=== PATIENT | male | born 2000 | race Caucasian/White ===

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

== ENCOUNTER 2020-12-11 07:21 | Emergency (ER) | payer BC, OTHER ==
[2020-12-11 07:37] VITALS: BP 92/68; PULSE 93
[2020-12-11 07:38] VITALS: O2SAT 100
--- NOTE | 2020-12-11 07:40 | ERPHSYRPT ---
- History of Present Illness Time Seen by Provider: 12/11/20 07:35 Source: patient Physician History: Patient is a 20-year-old male presents to our ED via EMS for evaluation of a seizure. Per EMS patient has been experiencing dizziness and a headache for approximately 1 month. 3 days ago patient fell and hit his head. This morning patient had a seizure that was observed by his girlfriend. EMS reports patient was confused upon their arrival. Patient is now somewhat combative. He is stating "I just want to go". Patient denies pain. No chest pain or shortness of breath. No nausea vomiting or diaphoresis at this time. No fever. No neck pain. Cervical spine cleared clinically. Patient states otherwise healthy. He voices no other complaints or concerns at this time. Timing/Duration: today Severity: moderate Modifying Factors: Improves With: nothing Associated Symptoms: denies symptoms Allergies/Adverse Reactions: No Known Drug Allergies Allergy (Verified 12/11/20 07:37) Home Medications: No Reportable Medications [No Reported Medications] 10/02/17 [History] Hx Tetanus, Diphtheria Vaccination/Date Given: Yes Hx Influenza Vaccination/Date Given: No Hx Pneumococcal Vaccination/Date Given: No - Review of Systems Constitutional: No Symptoms, No Fever, No Chills Eyes: No Symptoms Ears, Nose, & Throat: No Symptoms Respiratory: No Symptoms, No Cough, No Dyspnea Cardiac: No Symptoms, No Chest Pain, No Edema, No Syncope Abdominal/Gastrointestinal: No Symptoms, No Abdominal Pain, No Nausea, No Vomiting, No Diarrhea Genitourinary Symptoms: No Symptoms, No Dysuria Musculoskeletal: No Symptoms, No Back Pain, No Neck Pain Skin: No Symptoms, No Rash Neurological: No Symptoms, No Dizziness, No Focal Weakness, No Sensory Changes Psychological: No Symptoms Endocrine: No Symptoms Hematologic/Lymphatic: No Symptoms Immunological/Allergic: No Symptoms All Other Systems: Reviewed and Negative - Past Medical History Pertinent Past Medical History: No - Past Surgical History Past Surgical History: Yes Other Surgical History: TONSILS - Social History Smoking Status: Current every day smoker How long have you smoked: 2 years Exposure to second hand smoke: Yes Alcohol Use: None Drug Use: none Patient Lives Alone: No Significant Family History: no pertinent family hx - Nursing Vital Signs Nursing Vital Signs: Initial Vital Signs Temperature 97.2 F 12/11/20 07:25 Pulse Rate 93 H 12/11/20 07:25 Respiratory Rate 16 12/11/20 07:25 Blood Pressure 92/68 12/11/20 07:25 O2 Sat by Pulse Oximetry 99 12/11/20 07:25 Pain Scale Pain Intensity 0 - Physical Exam General Appearance: no apparent distress, alert, other (Patient states he does not want to be in the ED.) Eye Exam: PERRL/EOMI, eyes nml inspection Ears, Nose, Throat Exam: normal ENT inspection, TMs normal, pharynx normal, moist mucous membranes Neck Exam: normal inspection, non-tender, supple, full range of motion Respiratory Exam: normal breath sounds, lungs clear, No respiratory distress Cardiovascular Exam: regular rate/rhythm, normal heart sounds, normal peripheral pulses Gastrointestinal/Abdomen Exam: soft, normal bowel sounds, No tenderness, No mass Back Exam: normal inspection, normal range of motion, No CVA tenderness, No vertebral tenderness Extremity Exam: normal inspection, normal range of motion, pelvis stable Neurologic Exam: alert, oriented x 3, cooperative, normal mood/affect, sensation nml, No motor deficits Skin Exam: normal color, warm, dry, No rash Lymphatic Exam: No adenopathy SpO2 Interpretation: normal O2 Delivery: Room Air - Course Nursing assessment & vital signs reviewed: Yes Ordered Tests: Active Orders 24 hr Category Date Time Status Clicking Machine Operator STAT Care 12/11/20 07:33 Active EKG-ER Only STAT Care 12/11/20 07:32 Active IV Insertion STAT Care 12/11/20 07:32 Active Pulse Oximetry (ED) STAT Care 12/11/20 07:32 Active Seizure Precautions -SCCHED STAT Care 12/11/20 07:32 Active CBC W DIFF Stat Lab 12/11/20 07:32 Ordered CMP Stat Lab 12/11/20 07:32 Ordered Lactic Acid Stat Lab 12/11/20 07:32 Ordered UA W/RFX UR CULTURE Stat Lab 12/11/20 07:33 Ordered Urine Triage Profile Stat Lab 12/11/20 07:33 Ordered Medication Summary Generic Name Dose Route Start Last Admin Trade Name Freq PRN Reason Stop Dose Admin Sodium Chloride 1,000 mls @ 100 mls/hr 12/11/20 07:45 Sodium Chloride 0.9% 1000 Ml IV 01/10/21 07:44 .Q10H FARRAH - Progress Progress: unchanged Progress Note: Patient adamantly refused treatment. Father at bedside observed patient's refusal. AMA form was completed. We will release AGAINST MEDICAL ADVICE. Patient is of sound mind. Patient is appropriate to make informed and independent medical decisions. Patient understands that leaving AGAINST MEDICAL ADVICE can result in delayed diagnosis, increased risk of morbidity, mortality, short and long-term disability including . In spite of these risks, patient has decided to leave AGAINST MEDICAL ADVICE. Patient understands that he may return to our ED at any point if he reconsiders. Patient agrees to follow-up with his primary care doctor within 48 hours for reevaluation. Patient voices no other complaints or concerns at this time. We will release patient AGAINST MEDICAL ADVICE per their request. 12/11/20 07:56 Counseled pt/family regarding: need for follow-up - Departure Departure Disposition: AMA Clinical Impression: Seizure Condition: Stable Critical Care Time: No Additional Instructions: Discharge/Care Plan SHANTHI DUBON was seen on 12/11/20 in the Emergency Room. The patient was counseled regarding Diagnosis,Lab results, Imaging studies, need for follow up and when to return to the Emergency Room. Prescriptions given: Discharge Note I have spoken with the patient and/or caregivers. I have explained the patient's condition, diagnosis and treatment plan based on the information available to me at this time. I have answered the patient's and/or caregiver's questions and addressed any concerns. The patient and/or caregivers have as good understanding of the patient's diagnosis, condition and treatment plan as can be expected at this point. The vital signs have been stable. The patient's condition is stable and appropriate for discharge from the emergency department. The patient will pursue further outpatient evaluation with the primary care physician or other designated or consulting physician as outlined in the discharge instructions. The patient and/or caregivers are agreeable to this plan of care and follow-up instructions have been explained in detail. The patient and/or caregivers have received these instruction. The patient/and or caregivers are aware that any significant change in condition or worsening of symptoms should prompt an immediate return to this or the closest emergency department or call 911.
[2020-12-11] MEDS ORDERED: Sodium Chloride 0.9% 1000 ML 1,000 ML IV SCH (07:45)
== END 2020-12-11 07:52 | disposition left against medical advice (07) ==
LOC: ED 07:21
DX: W18.30XA Fall on same level, unspecified, initial encounter (principal); Y92.9 Unspecified place or not applicable; Y99.9 Unspecified external cause status; R42 Dizziness and giddiness; R51.9 Headache, unspecified
CPT/HCPCS: 36000; 93041; 94760; 99284

== ENCOUNTER 2020-12-24 06:17 | Emergency (ER) | payer BC ==
[2020-12-24] MEDS ORDERED: Sodium Chloride 0.9% 1000 ML 1,000 ML IV STA (06:51)
--- NOTE | 2020-12-24 06:51 | ERPHSYRPT ---
- History of Present Illness Source: patient Timing/Duration: day(s) (3), intermittent Severity: moderate Baseline/Normal Cognition: alert oriented x 3 Current Cognition: alert oriented x 3 Baseline Gait: walks w/o assistance Associated Symptoms: loss of consciousness, seizures Hx Tetanus, Diphtheria Vaccination/Date Given: Yes Hx Influenza Vaccination/Date Given: No Hx Pneumococcal Vaccination/Date Given: No <ELI ADAMS - Last Filed: 12/24/20 06:47> <WAQAS WHITMORE - Last Filed: 12/24/20 08:11> - History of Present Illness Time Seen by Provider: 12/24/20 06:47 Physician History: Patient is a previously healthy 20-year-old white male who 3 days ago was diagnosed as Covid positive at the [facility] in [place]. He has had a total of 3 seizures they are brief he has no warning they last about 2 to 3 minutes and he has a very brief postictal state. He is scheduled for an EEG. He has not had a CT scan. There is no history of any previous seizure activity. (ELI ADAMS) Allergies/Adverse Reactions: No Known Drug Allergies Allergy (Verified 12/24/20 06:29) Home Medications: No Reportable Medications [No Reported Medications] 10/02/17 [History] Travel Risk - Vaccine Status Have you recieved a Covid-19 vaccination: No <ELI ADAMS - Last Filed: 12/24/20 06:47> - Review of Systems Constitutional: No Fever, No Chills Eyes: No Symptoms Ears, Nose, & Throat: No Symptoms Respiratory: No Cough, No Dyspnea Cardiac: No Chest Pain, No Edema, No Syncope Abdominal/Gastrointestinal: No Abdominal Pain, No Nausea, No Vomiting, No Diarrhea Genitourinary Symptoms: No Dysuria Musculoskeletal: No Back Pain, No Neck Pain Skin: No Rash Neurological: Seizure, No Dizziness, No Focal Weakness, No Sensory Changes Psychological: No Symptoms Endocrine: No Symptoms All Other Systems: Reviewed and Negative <ELI ADAMS - Last Filed: 12/24/20 06:47> - Past Medical History Pertinent Past Medical History: No - Past Surgical History Past Surgical History: Yes Other Surgical History: TONSILS - Social History Smoking Status: Current every day smoker How long have you smoked: 2 years Exposure to second hand smoke: Yes Alcohol Use: None Drug Use: none Patient Lives Alone: No Significant Family History: no pertinent family hx <ANGIEELI - Last Filed: 12/24/20 06:47> - Margot Coma Scale Best Eye Response (Margot): (4) open spontaneously Best Verbal Response ([place]): (5) oriented Best Motor Response (Margot): (6) obeys commands Margot Total: 15 - Physical Exam General Appearance: no apparent distress, alert Eye Exam: bilateral eye: PERRL, EOMI Ears, Nose, Throat Exam: normal ENT inspection, moist mucous membranes Neck Exam: normal inspection, non-tender, supple Respiratory: normal breath sounds, lungs clear, airway intact, No respiratory distress Cardiovascular: regular rate/rhythm, No edema Gastrointestinal: soft, No tenderness, No distention Back Exam: normal inspection Extremity Exam: normal inspection, No pedal edema 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, 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 3 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 examiner Exam: tongue midline Coordination/Gait: normal finger to nose, normal gait Skin Exam: normal color, warm, dry, No rash <ELI ADAMS - Last Filed: 12/24/20 06:47> - Nursing Vital Signs Nursing Vital Signs: Initial Vital Signs Temperature 98.5 F 12/24/20 06:30 Pulse Rate 70 12/24/20 06:30 Respiratory Rate 12 12/24/20 06:30 Blood Pressure 142/86 12/24/20 06:30 O2 Sat by Pulse Oximetry 100 12/24/20 06:30 Pain Scale Pain Intensity 0 - Course Nursing assessment & vital signs reviewed: Yes <ANGIEELI - Last Filed: 12/24/20 06:47> - Course EKG Interpreted by Me: Sinus Rhythm <WAQAS WHITMORE - Last Filed: 12/24/20 08:11> Ordered Tests: Active Orders 24 hr Category Date Time Status Veneer Lathe Operator STAT Care 12/24/20 06:51 Active EKG-ER Only STAT Care 12/24/20 06:51 Active IV Insertion STAT Care 12/24/20 06:51 Active POCT Glucose Check STAT Care 12/24/20 06:51 Active Pulse Oximetry (ED) STAT Care 12/24/20 06:51 Active Seizure Precautions -SCCHED STAT Care 12/24/20 06:51 Active CHEST 1 VIEW (PORTABLE) Stat Exams 12/24/20 06:51 Taken HEAD WITHOUT CONTRAST [CT] Stat Exams 12/24/20 06:51 Taken BLOOD CULTURE Stat Lab 12/24/20 07:25 Received CBC W DIFF Stat Lab 12/24/20 06:50 Completed CMP Stat Lab 12/24/20 06:50 Completed D-DIMER QUANTITATIVE Stat Lab 12/24/20 07:15 Completed Lactic Acid Stat Lab 12/24/20 06:51 Ordered POCT GLUCOSE Stat Lab 12/24/20 06:27 Completed TROPONIN Q3H Lab 12/24/20 06:50 Received TROPONIN Q3H Lab 12/24/20 10:00 Ordered TROPONIN Q3H Lab 12/24/20 13:00 Ordered TROPONIN Q3H Lab 12/24/20 16:00 Ordered TROPONIN Q3H Lab 12/24/20 19:00 Ordered TROPONIN Q3H Lab 12/24/20 22:00 Ordered UA W/RFX UR CULTURE Stat Lab 12/24/20 07:07 Completed Urine Triage Profile Stat Lab 12/24/20 07:07 Completed Medication Summary Discontinued Medications Generic Name Dose Route Start Last Admin Trade Name Freq PRN Reason Stop Dose Admin Sodium Chloride 1,000 mls @ 999 mls/hr 12/24/20 06:51 12/24/20 07:41 Sodium Chloride 0.9% 1000 Ml IV 12/24/20 07:51 999 mls/hr .Q1H1M STA Administration Sodium Chloride Confirm 12/24/20 07:40 Sodium Chloride 0.9% 1000 Ml Administered 12/24/20 07:41 Dose 1,000 mls @ ud .ROUTE .STK-MED ONE Lab/Rad Data: Laboratory Result Diagrams 12/24/20 06:50 12/24/20 06:50 Laboratory Results 12/24/20 12/24/20 12/24/20 Range/Units 07:15 07:07 07:07 WBC (4.0-10.5) K/mm3 RBC (4.1-5.6) M/mm3 Hgb (12.5-18.0) gm/dl Hct (42-50) % MCV (78-100) fl MCH (26-32) pg MCHC (32-36) g/dl RDW (11.5-14.0) % Plt Count (150-450) K/mm3 MPV (7.5-11.0) fl Gran % (36.0-66.0) % Eos # (Auto) (0-0.5) Absolute Lymphs (auto) (1.0-4.6) Absolute Monos (auto) (0.0-1.3) Lymphocytes % (24.0-44.0) % Monocytes % (0.0-12.0) % Eosinophils % (0.00-5.0) % Basophils % (0.0-0.4) % Absolute Granulocytes (1.4-6.9) Basophils # (0-0.4) D-Dimer 223 (215-500) ng/mL Sodium (137-145) mmol/L Potassium (3.5-5.1) mmol/L Chloride (98-107) mmol/L Carbon Dioxide (22-30) mmol/L Anion Gap (5-15) MEQ/L BUN (9-20) mg/dL Creatinine (0.66-1.25) mg/dL Estimated GFR ML/MIN Glucose (74-106) mg/dL POC Glucometer (74 to 106) mg/dL Calcium (8.4-10.2) mg/dL Total Bilirubin (0.2-1.3) mg/dL AST (17-59) U/L ALT (0-50) U/L Alkaline Phosphatase (38-126) U/L Serum Total Protein (6.3-8.2) g/dL Albumin (3.5-5.0) g/dL Urine Color YELLOW (YELLOW) Urine Appearance CLEAR (CLEAR) Urine pH 5.0 (5-6) Ur Specific [place] 1.017 (1.005-1.025) Urine Protein NEGATIVE (Negative) Urine Ketones NEGATIVE (NEGATIVE) Urine Blood NEGATIVE (0-5) Bret/ul Urine Nitrite NEGATIVE (NEGATIVE) Urine Bilirubin NEGATIVE (NEGATIVE) Urine Urobilinogen NEGATIVE (0-1) mg/dL Ur Leukocyte Esterase NEGATIVE (NEGATIVE) Urine WBC (Auto) 0-2 (0-5) /HPF Urine RBC (Auto) NONE (0-2) /HPF U Epithel Cells (Auto) NONE (FEW) /HPF Urine Bacteria (Auto) NONE SEEN (NEGATIVE) /HPF Urine Mucus (Auto) SLIGHT (NEGATIVE) /HPF Urine Culture Reflexed NO (NO) Urine Glucose NEGATIVE (NEGATIVE) mg/dL Urine Opiates Level NEGATIVE (NEGATIVE) Ur Methadone NEGATIVE (NEGATIVE) Urine Barbiturates NEGATIVE (NEGATIVE) Ur Phencyclidine (PCP) NEGATIVE (NEGATIVE) Urine Amphetamine NEGATIVE (NEGATIVE) U Benzodiazepine Level NEGATIVE (NEGATIVE) Urine Cocaine NEGATIVE (NEGATIVE) Urine Marijuana (THC) POSITIVE (NEGATIVE) 12/24/20 12/24/20 12/24/20 Range/Units 06:50 06:50 06:27 WBC 6.7 (4.0-10.5) K/mm3 RBC 5.67 H (4.1-5.6) M/mm3 Hgb 16.4 (12.5-18.0) gm/dl Hct 47.4 (42-50) % MCV 83.6 (78-100) fl MCH 28.9 (26-32) pg MCHC 34.6 (32-36) g/dl RDW 12.5 (11.5-14.0) % Plt Count 212 (150-450) K/mm3 MPV 10.0 (7.5-11.0) fl Gran % 73.0 H (36.0-66.0) % Eos # (Auto) 0 (0-0.5) Absolute Lymphs (auto) 1.32 (1.0-4.6) Absolute Monos (auto) 0.48 (0.0-1.3) Lymphocytes % 19.7 L (24.0-44.0) % Monocytes % 7.2 (0.0-12.0) % Eosinophils % 0.0 (0.00-5.0) % Basophils % 0.1 (0.0-0.4) % Absolute Granulocytes 4.90 (1.4-6.9) Basophils # 0.01 (0-0.4) D-Dimer (215-500) ng/mL Sodium 137 (137-145) mmol/L Potassium 3.6 (3.5-5.1) mmol/L Chloride 100 (98-107) mmol/L Carbon Dioxide 24 (22-30) mmol/L Anion Gap 15.6 H (5-15) MEQ/L BUN 13 (9-20) mg/dL Creatinine 0.83 (0.66-1.25) mg/dL Estimated GFR > 60.0 ML/MIN Glucose 129 H (74-106) mg/dL POC Glucometer 99 (74 to 106) mg/dL Calcium 9.2 (8.4-10.2) mg/dL Total Bilirubin 0.70 (0.2-1.3) mg/dL AST 22 (17-59) U/L ALT 17 (0-50) U/L Alkaline Phosphatase 73 (38-126) U/L Serum Total Protein 7.6 (6.3-8.2) g/dL Albumin 4.6 (3.5-5.0) g/dL Urine Color (YELLOW) Urine Appearance (CLEAR) Urine pH (5-6) Ur Specific [place] (1.005-1.025) Urine Protein (Negative) Urine Ketones (NEGATIVE) Urine Blood (0-5) Bret/ul Urine Nitrite (NEGATIVE) Urine Bilirubin (NEGATIVE) Urine Urobilinogen (0-1) mg/dL Ur Leukocyte Esterase (NEGATIVE) Urine WBC (Auto) (0-5) /HPF Urine RBC (Auto) (0-2) /HPF U Epithel Cells (Auto) (FEW) /HPF Urine Bacteria (Auto) (NEGATIVE) /HPF Urine Mucus (Auto) (NEGATIVE) /HPF Urine Culture Reflexed (NO) Urine Glucose (NEGATIVE) mg/dL Urine Opiates Level (NEGATIVE) Ur Methadone (NEGATIVE) Urine Barbiturates (NEGATIVE) Ur Phencyclidine (PCP) (NEGATIVE) Urine Amphetamine (NEGATIVE) U Benzodiazepine Level (NEGATIVE) Urine Cocaine (NEGATIVE) Urine Marijuana (THC) (NEGATIVE) - Progress Progress: improved Counseled pt/family regarding: drug and/or alcohol abuse, lab results, diagnosis, need for follow-up, rad results, smoking cessation <WAQAS WHITMORE - Last Filed: 12/24/20 08:11> - Progress Progress Note: 12/24/20 07:22 Patient is doing ok. awaiting CT scan head and labs results. (WAQAS WHITMORE) <ELI ADAMS - Last Filed: 12/24/20 06:47> - Departure Departure Disposition: Home Critical Care Time: Yes Critical Care Time(excluding separately billable procedures): Critical 30-74 mi ns <WAQAS WHITMORE - Last Filed: 12/24/20 08:11> - Departure Clinical Impression: Seizures, COVID-19 Condition: Stable Referrals: DOCTOR,NO FAMILY [Primary Care Provider] - Instructions: Coronavirus Disease 2019 (COVID-19) (DC), Coronavirus Disease 2019 (COVID-19) Forms: Work/School Release Form
[2020-12-24 07:36] LABS: BASOPHIL % 0.1 % (0.0-0.4); Basophil (Absolute #) 0.01 (0-0.4); Eosinophil (Absolute #) 0 (0-0.5); Hematocrit 47.4 % (42-50); Hemoglobin 16.4 gm/dl (12.5-18.0); Lymphocyte (Absolute #) 1.32 (1.0-4.6); Lymphocytes % 19.7 % (24.0-44.0); Mean Cell Volume 83.6 fl (78-100); Mean Corpuscular Hemoglobin 28.9 pg (26-32); Mean Corpuscular Hgb Concent. 34.6 g/dl (32-36); Monocyte (Absolute #) 0.48 (0.0-1.3); Monocytes % 7.2 % (0.0-12.0); Platelet Count 212 K/mm3 (150-450); Red Blood Count 5.67 M/mm3 (4.1-5.6); Red Cell Distribution Width 12.5 % (11.5-14.0); White Blood Count 6.7 K/mm3 (4.0-10.5)
[2020-12-24 07:40] LABS: Appearance CLEAR (CLEAR); Bilirubin NEGATIVE (NEGATIVE); Blood NEGATIVE Ery/ul (0-5); Glucose NEGATIVE (NEGATIVE); Ketones NEGATIVE (NEGATIVE); Leukocyte Esterase NEGATIVE (NEGATIVE); Mucus SLIGHT /HPF (NEGATIVE); Nitrite NEGATIVE (NEGATIVE); Protein,Urine Dip NEGATIVE (Negative); Specific Gravity 1.017 (1.005-1.025); Urobilinogen NEGATIVE mg/dL (0-1); WBC 0-2 /HPF (0-5)
[2020-12-24] MEDS ORDERED: Sodium Chloride 0.9% 1000 ML 1,000 ML ONE (07:40)
[2020-12-24 07:48] LABS: Bacteria NONE SEEN /HPF (NEGATIVE)
[2020-12-24 07:48] LABS: ALBUMIN 4.6 g/dL (3.5-5.0); ALKALINE PHOSPHATASE 73 U/L (38-126); ANION GAP 15.6 MEQ/L (5-15); BLOOD UREA NITROGEN 13 mg/dL (9-20); CHLORIDE 100 mmol/L (98-107); Calcium 9.2 mg/dL (8.4-10.2); Carbon Dioxide 24 mmol/L (22-30); Creatinine 1 0.83 mg/dL (0.66-1.25); EST GLOMERULAR FILTRATION RATE > 60.0 ML/MIN; Glucose 129 mg/dL (74-106); Potassium 3.6 mmol/L (3.5-5.1); SGOT/AST 22 U/L (17-59); SGPT/ALT 17 U/L (0-50); SODIUM 137 mmol/L (137-145); Total Protein 7.6 g/dL (6.3-8.2)
[2020-12-24 07:57] LABS: Amphetamine,Urine NEGATIVE (NEGATIVE); Barbiturate,Urine NEGATIVE (NEGATIVE); Benzodiazepine,Urine NEGATIVE (NEGATIVE); Cocaine,Urine NEGATIVE (NEGATIVE); Methadone,Urine NEGATIVE (NEGATIVE); Opiate,Urine NEGATIVE (NEGATIVE); PCP,Urine NEGATIVE (NEGATIVE); THC,Urine POSITIVE (NEGATIVE)
[2020-12-24 08:51] VITALS: BP 113/69; PULSE 85; O2SAT 99
--- NOTE | 2020-12-24 18:33 | XRAY ---
Indication: Positive covid 19. Seizure. Comparison: None Single AP chest demonstrates normal heart and lungs. Bony thorax intact.
--- NOTE | 2020-12-24 18:39 | XRAY ---
Indication: Seizure. Positive covid 19. Multiple contiguous axial images obtained through the head without contrast. Comparison: January 07, 2007. Normal appearing brain parenchyma, ventricles, and bony calvarium. Visualized paranasal sinuses and mastoid air cells are clear. Impression: Continued normal CT head without contrast exam. Comment: Preliminary interpretation made by [facility]. No critical discrepancy.
== END 2020-12-24 08:51 | disposition home or self-care (01) ==
LOC: ED 06:17
DX: R56.9 Unspecified convulsions (principal); R07.1 Chest pain on breathing
CPT/HCPCS: 36000; 36415; 70450; 71045; 80053; 80307; 81001; 82947; 84146; 84484; 85025; 85379; 87040; 93005; 93041; 94760; 99284; 99291

== ENCOUNTER 2021-02-14 14:15 | Observation (INO) | payer BC ==
[2021-02-14] MEDS ORDERED: Ativan 2 MG/1 ML VIAL IV ONE (14:28)
[2021-02-14] MEDS ORDERED: Zofran 4 MG/2 ML VIAL IV ONE (14:28)
[2021-02-14] MEDS ORDERED: Zofran 4 MG/2 ML VIAL ONE (14:31)
[2021-02-14] MEDS ORDERED: Ativan 2 MG/1 ML VIAL ONE (14:31)
[2021-02-14] MEDS: Sodium Chloride 0.9% 1000 ML 1,000 ML IV SCH ×2 (14:33→21:26)
[2021-02-14 14:59] LABS: Absolute Neutrophil Ct (ANC) 18.48 (1.4-6.9); BASOPHIL % 0.1 % (0.0-0.4); Basophil (Absolute #) 0.02 (0-0.4); Eosinophil (Absolute #) 0.01 (0-0.5); Hematocrit 48.1 % (42-50); Hemoglobin 16.4 gm/dl (12.5-18.0); Lymphocyte (Absolute #) 1.02 (1.0-4.6); Lymphocytes % 4.9 % (24.0-44.0); Mean Cell Volume 83.9 fl (78-100); Mean Corpuscular Hemoglobin 28.6 pg (26-32); Mean Corpuscular Hgb Concent. 34.1 g/dl (32-36); Mean Platelet Volume 9.1 fl (7.5-11.0); Monocyte (Absolute #) 1.32 (0.0-1.3); Monocytes % 6.3 % (0.0-12.0); Neutrophil % 88.7 % (36.0-66.0); Platelet Count 265 K/mm3 (150-450); Red Blood Count 5.73 M/mm3 (4.1-5.6); Red Cell Distribution Width 12.9 % (11.5-14.0); White Blood Count 20.9 K/mm3 (4.0-10.5)
[2021-02-14 15:08] LABS: ACETAMINOPHEN < 10 ug/ml (10-30); SALICYLATE < 1.0 mg/dL (2-20)
[2021-02-14 15:11] LABS: ALBUMIN 5.3 g/dL (3.5-5.0); ALKALINE PHOSPHATASE 77 U/L (38-126); BLOOD UREA NITROGEN 14 mg/dL (9-20); CHLORIDE 100 mmol/L (98-107); CK-Creatinine Phosphokinase 198 U/L (55-170); Carbon Dioxide 18 mmol/L (22-30); Creatinine 1 1.08 mg/dL (0.66-1.25); EST GLOMERULAR FILTRATION RATE > 60.0 ML/MIN; ETHYL ALCOHOL < 10 mg/dL (0-10); Glucose 154 mg/dL (74-106); MAGNESIUM 2.2 mg/dL (1.6-2.3); Potassium 3.9 mmol/L (3.5-5.1); SGOT/AST 31 U/L (17-59); SODIUM 140 mmol/L (137-145); Total Protein 8.3 g/dL (6.3-8.2)
--- NOTE | 2021-02-14 15:12 | ERPHSYRPT ---
- History of Present Illness Time Seen by Provider: 02/14/21 14:25 Source: patient Exam Limitations: no limitations Patient Subjective Stated Complaint: Pt mother states "He has had 2 seizures today and 6 in the last 2 months. He said he had a headache and then he went to the bathroom and then he was seizing on the floor hitting his head." Triage Nursing Assessment: PT presented angry, irritable, unable to sit still, vomiting. Pt moaning. Pt in post ictal state. PT coughing and vomiting. Physician History: Patient is a 20-year-old male presents to emergency department for evaluation of seizure. Mother reports that patient has new onset seizures. Seizure started approximately 2 months ago. In the 6-month timeframe patient had 6 seizures. Work-up for the seizures including a CT head and EEG. Patient's primary care doctor currently has patient scheduled to follow-up with a neurologist but has not done so. Patient reportedly had 2 seizures today. Family reports that patient had a headache walk to the bathroom and had a seizure. Patient arrived to ED escorted by PD. Patient was combative. Patient was nauseous and vomiting. No fever. No neck pain. No photophobia. Mother at bedside. Mother unsure of drug use. Toxicology screen ordered. Patient believes it is 2019. He does not recall who the president is. This may be due to covering from post ictal. Symptoms are moderate in intensity. No specific worsening improving factors. Timing/Duration: today Severity: moderate Modifying Factors: Improves With: nothing Associated Symptoms: nausea, vomiting, cough, headaches, seizure, No abdominal pain, No shortness of breath, No weakness Allergies/Adverse Reactions: No Known Drug Allergies Allergy (Verified 12/24/20 06:29) Home Medications: No Reportable Medications [No Reported Medications] 10/02/17 [History] Hx Tetanus, Diphtheria Vaccination/Date Given: Yes Hx Influenza Vaccination/Date Given: No Hx Pneumococcal Vaccination/Date Given: No Immunizations Up to Date: Yes Travel Risk - International Travel Have you traveled outside of the country in past 3 weeks: No - Coronavirus Screening Are you exhibiting any of the following symptoms?: No Close contact with a COVID-19 positive Pt in past 14-21 Days: No - Vaccine Status Have you recieved a Covid-19 vaccination: No - Review of Systems Constitutional: No Symptoms, No Fever, No Chills Eyes: No Symptoms Ears, Nose, & Throat: No Symptoms Respiratory: No Symptoms, No Cough, No Dyspnea Cardiac: No Symptoms, No Chest Pain, No Edema, No Syncope Abdominal/Gastrointestinal: No Symptoms, No Abdominal Pain, No Nausea, No Vomiting, No Diarrhea Genitourinary Symptoms: No Symptoms, No Dysuria Musculoskeletal: No Symptoms, No Back Pain, No Neck Pain Skin: No Symptoms, No Rash Neurological: No Symptoms, No Dizziness, No Focal Weakness, No Sensory Changes Psychological: No Symptoms Endocrine: No Symptoms Hematologic/Lymphatic: No Symptoms Immunological/Allergic: No Symptoms All Other Systems: Reviewed and Negative - Past Medical History Pertinent Past Medical History: No - Past Surgical History Past Surgical History: Yes Other Surgical History: TONSILS - Social History Smoking Status: Never smoker How long have you smoked: 2 years Exposure to second hand smoke: No Alcohol Use: None Drug Use: other Patient Lives Alone: No Significant Family History: no pertinent family hx - Nursing Vital Signs Nursing Vital Signs: Initial Vital Signs Temperature 97.8 F 02/14/21 14:16 Pulse Rate 119 H 02/14/21 14:16 Respiratory Rate 22 02/14/21 14:16 Blood Pressure 129/69 02/14/21 14:16 O2 Sat by Pulse Oximetry 95 02/14/21 14:16 Pain Scale Pain Intensity 0 - Physical Exam General Appearance: mild distress, alert, other (Patient is nauseous mildly combative and vomiting.) Eye Exam: PERRL/EOMI, eyes nml inspection Ears, Nose, Throat Exam: normal ENT inspection, TMs normal, pharynx normal, moist mucous membranes Neck Exam: normal inspection, non-tender, supple, full range of motion, No limited range of motion (Cervical spine cleared clinically) Respiratory Exam: normal breath sounds, lungs clear, airway intact, No chest tenderness, No respiratory distress Cardiovascular Exam: regular rate/rhythm, normal heart sounds, normal peripheral pulses Gastrointestinal/Abdomen Exam: soft, normal bowel sounds, No tenderness, No mass Back Exam: normal inspection, normal range of motion, No CVA tenderness, No vertebral tenderness Extremity Exam: normal inspection, normal range of motion, pelvis stable Neurologic Exam: alert, oriented x 3, cooperative, normal mood/affect, sensation nml, No motor deficits Skin Exam: normal color, warm, dry, No rash, No cyanosis Lymphatic Exam: No adenopathy SpO2 Interpretation: normal SpO2: 98 O2 Delivery: Room Air - Course Nursing assessment & vital signs reviewed: Yes Ordered Tests: Active Orders 24 hr Category Date Time Status Tool Programmer STAT Care 02/14/21 14:26 Active EKG-ER Only STAT Care 02/14/21 14:25 Active IV Insertion STAT Care 02/14/21 14:25 Active Pulse Oximetry (ED) STAT Care 02/14/21 14:25 Active Tele-Health Consult ROUTINE Cons 02/14/21 18:36 Active HEAD WITHOUT CONTRAST [CT] Stat Exams 02/14/21 14:27 Completed ACETAMINOPHEN Stat Lab 02/14/21 14:54 Completed CBC W DIFF Stat Lab 02/14/21 14:54 Completed CK-Creatinine Phosphokinase Stat Lab 02/14/21 14:54 Completed CMP Stat Lab 02/14/21 14:54 Completed CULTURE,URINE Stat Lab 02/14/21 16:30 Received D-DIMER QUANTITATIVE Stat Lab 02/14/21 18:44 Completed ETHYL ALCOHOL Stat Lab 02/14/21 14:54 Completed MAGNESIUM Stat Lab 02/14/21 14:54 Completed SALICYLATE Stat Lab 02/14/21 14:54 Completed TROPONIN Q3H Lab 02/14/21 14:54 Completed TROPONIN Q3H Lab 02/14/21 18:55 Completed TROPONIN Q3H Lab 02/15/21 02:30 Ordered UA W/RFX UR CULTURE Stat Lab 02/14/21 16:30 Completed Urine Triage Profile Stat Lab 02/14/21 16:30 Completed Medication Summary Generic Name Dose Route Start Last Admin Trade Name Freq PRN Reason Stop Dose Admin Sodium Chloride 1,000 mls @ 100 mls/hr 02/14/21 14:30 02/14/21 14:33 Sodium Chloride 0.9% 1000 Ml IV 03/16/21 14:29 100 mls/hr .Q10H FARRAH Administration Discontinued Medications Generic Name Dose Route Start Last Admin Trade Name Freq PRN Reason Stop Dose Admin Enoxaparin Sodium 74 mg 02/14/21 19:01 02/14/21 20:27 Enoxaparin Sodium 80 Mg/0.8 Ml Syringe SQ 02/14/21 19:02 74 mg STAT ONE Administration Enoxaparin Sodium Confirm 02/14/21 20:24 Enoxaparin Sodium 80 Mg/0.8 Ml Syringe Administered 02/14/21 20:25 Dose 80 mg SQ .STK-MED ONE Levetiracetam 1,500 mg/ 115 mls @ 220 mls/hr 02/14/21 18:50 02/14/21 20:12 Dextrose IV 02/14/21 19:21 220 mls/hr STAT ONE Administration Dextrose Confirm 02/14/21 20:09 D5w 100ml Mini Bag 100 Ml Administered 02/14/21 20:10 Dose 100 mls @ ud IV .STK-MED ONE Levetiracetam Confirm 02/14/21 20:09 Levetiracetam 500 Mg/5 Ml Vial Administered 02/14/21 20:10 Dose 1,500 mg .ROUTE .STK-MED ONE Lorazepam 1 mg 02/14/21 14:28 02/14/21 14:33 Lorazepam 2 Mg/1 Ml 2 Mg Vial IV 02/14/21 14:29 1 mg STAT ONE Administration Lorazepam Confirm 02/14/21 14:31 Lorazepam 2 Mg/1 Ml 2 Mg Vial Administered 02/14/21 14:32 Dose 2 mg .ROUTE .STK-MED ONE Ondansetron HCl 4 mg 02/14/21 14:28 02/14/21 14:33 Ondansetron Hcl 4 Mg/2 Ml Vial IV 02/14/21 14:29 4 mg STAT ONE Administration Ondansetron HCl Confirm 02/14/21 14:31 Ondansetron Hcl 4 Mg/2 Ml Vial Administered 02/14/21 14:32 Dose 4 mg .ROUTE .STK-MED ONE Lab/Rad Data: Laboratory Result Diagrams 02/14/21 14:54 02/14/21 14:54 Laboratory Results 02/14/21 02/14/21 02/14/21 Range/Units 19:20 18:55 18:44 WBC (4.0-10.5) K/mm3 RBC (4.1-5.6) M/mm3 Hgb (12.5-18.0) gm/dl Hct (42-50) % MCV (78-100) fl MCH (26-32) pg MCHC (32-36) g/dl RDW (11.5-14.0) % Plt Count (150-450) K/mm3 MPV (7.5-11.0) fl Gran % (36.0-66.0) % Eos # (Auto) (0-0.5) Absolute Lymphs (auto) (1.0-4.6) Absolute Monos (auto) (0.0-1.3) Lymphocytes % (24.0-44.0) % Monocytes % (0.0-12.0) % Eosinophils % (0.00-5.0) % Basophils % (0.0-0.4) % Absolute Granulocytes (1.4-6.9) Basophils # (0-0.4) D-Dimer 287 (215-500) ng/mL Sodium (137-145) mmol/L Potassium (3.5-5.1) mmol/L Chloride (98-107) mmol/L Carbon Dioxide (22-30) mmol/L Anion Gap (5-15) MEQ/L BUN (9-20) mg/dL Creatinine (0.66-1.25) mg/dL Estimated GFR ML/MIN Glucose (74-106) mg/dL Calcium (8.4-10.2) mg/dL Magnesium (1.6-2.3) mg/dL Total Bilirubin (0.2-1.3) mg/dL AST (17-59) U/L ALT (0-50) U/L Alkaline Phosphatase (38-126) U/L Creatine Kinase (55-170) U/L Troponin I < 0.012 (0.000-0.034) ng/mL Serum Total Protein (6.3-8.2) g/dL Albumin (3.5-5.0) g/dL Urine Color (YELLOW) Urine Appearance (CLEAR) Urine pH (5-6) Ur Specific [place] (1.005-1.025) Urine Protein (Negative) Urine Ketones (NEGATIVE) Urine Blood (0-5) Bret/ul Urine Nitrite (NEGATIVE) Urine Bilirubin (NEGATIVE) Urine Urobilinogen (0-1) mg/dL Ur Leukocyte Esterase (NEGATIVE) Urine WBC (Auto) (0-5) /HPF Urine RBC (Auto) (0-2) /HPF U Hyaline Cast (Auto) (0-2) /LPF U Epithel Cells (Auto) (FEW) /HPF Urine Bacteria (Auto) (NEGATIVE) /HPF Urine Mucus (Auto) (NEGATIVE) /HPF Urine Culture Reflexed (NO) Urine Glucose (NEGATIVE) mg/dL Salicylates (2-20) mg/dL Urine Opiates Level (NEGATIVE) Ur Methadone (NEGATIVE) Acetaminophen (10-30) ug/ml Urine Barbiturates (NEGATIVE) Ur Phencyclidine (PCP) (NEGATIVE) Urine Amphetamine (NEGATIVE) U Benzodiazepine Level (NEGATIVE) Urine Cocaine (NEGATIVE) Urine Marijuana (THC) (NEGATIVE) Ethyl Alcohol (0-10) mg/dL SARS-CoV-2 (PCR) NEGATIVE (NEGATIVE) 02/14/21 02/14/21 02/14/21 Range/Units 16:30 16:30 14:54 WBC (4.0-10.5) K/mm3 RBC (4.1-5.6) M/mm3 Hgb (12.5-18.0) gm/dl Hct (42-50) % MCV (78-100) fl MCH (26-32) pg MCHC (32-36) g/dl RDW (11.5-14.0) % Plt Count (150-450) K/mm3 MPV (7.5-11.0) fl Gran % (36.0-66.0) % Eos # (Auto) (0-0.5) Absolute Lymphs (auto) (1.0-4.6) Absolute Monos (auto) (0.0-1.3) Lymphocytes % (24.0-44.0) % Monocytes % (0.0-12.0) % Eosinophils % (0.00-5.0) % Basophils % (0.0-0.4) % Absolute Granulocytes (1.4-6.9) Basophils # (0-0.4) D-Dimer (215-500) ng/mL Sodium (137-145) mmol/L Potassium (3.5-5.1) mmol/L Chloride (98-107) mmol/L Carbon Dioxide (22-30) mmol/L Anion Gap (5-15) MEQ/L BUN (9-20) mg/dL Creatinine (0.66-1.25) mg/dL Estimated GFR ML/MIN Glucose (74-106) mg/dL Calcium (8.4-10.2) mg/dL Magnesium (1.6-2.3) mg/dL Total Bilirubin (0.2-1.3) mg/dL AST (17-59) U/L ALT (0-50) U/L Alkaline Phosphatase (38-126) U/L Creatine Kinase (55-170) U/L Troponin I (0.000-0.034) ng/mL Serum Total Protein (6.3-8.2) g/dL Albumin (3.5-5.0) g/dL Urine Color YELLOW (YELLOW) Urine Appearance CLOUDY (CLEAR) Urine pH 5.0 (5-6) Ur Specific [place] 1.021 (1.005-1.025) Urine Protein 100 (Negative) Urine Ketones TRACE (NEGATIVE) Urine Blood MODERATE (0-5) Bret/ul Urine Nitrite NEGATIVE (NEGATIVE) Urine Bilirubin NEGATIVE (NEGATIVE) Urine Urobilinogen NEGATIVE (0-1) mg/dL Ur Leukocyte Esterase NEGATIVE (NEGATIVE) Urine WBC (Auto) 3-5 (0-5) /HPF Urine RBC (Auto) 0-2 (0-2) /HPF U Hyaline Cast (Auto) 26-50 (0-2) /LPF U Epithel Cells (Auto) NONE (FEW) /HPF Urine Bacteria (Auto) RARE (NEGATIVE) /HPF Urine Mucus (Auto) SLIGHT (NEGATIVE) /HPF Urine Culture Reflexed YES (NO) Urine Glucose NEGATIVE (NEGATIVE) mg/dL Salicylates < 1.0 L (2-20) mg/dL Urine Opiates Level NEGATIVE (NEGATIVE) Ur Methadone NEGATIVE (NEGATIVE) Acetaminophen < 10 L (10-30) ug/ml Urine Barbiturates NEGATIVE (NEGATIVE) Ur Phencyclidine (PCP) NEGATIVE (NEGATIVE) Urine Amphetamine NEGATIVE (NEGATIVE) U Benzodiazepine Level NEGATIVE (NEGATIVE) Urine Cocaine NEGATIVE (NEGATIVE) Urine Marijuana (THC) POSITIVE (NEGATIVE) Ethyl Alcohol (0-10) mg/dL SARS-CoV-2 (PCR) (NEGATIVE) 02/14/21 02/14/21 02/14/21 Range/Units 14:54 14:54 14:54 WBC 20.9 H (4.0-10.5) K/mm3 RBC 5.73 H (4.1-5.6) M/mm3 Hgb 16.4 (12.5-18.0) gm/dl Hct 48.1 (42-50) % MCV 83.9 (78-100) fl MCH 28.6 (26-32) pg MCHC 34.1 (32-36) g/dl RDW 12.9 (11.5-14.0) % Plt Count 265 (150-450) K/mm3 MPV 9.1 (7.5-11.0) fl Gran % 88.7 H (36.0-66.0) % Eos # (Auto) 0.01 (0-0.5) Absolute Lymphs (auto) 1.02 (1.0-4.6) Absolute Monos (auto) 1.32 H (0.0-1.3) Lymphocytes % 4.9 L (24.0-44.0) % Monocytes % 6.3 (0.0-12.0) % Eosinophils % 0.0 (0.00-5.0) % Basophils % 0.1 (0.0-0.4) % Absolute Granulocytes 18.48 H (1.4-6.9) Basophils # 0.02 (0-0.4) D-Dimer (215-500) ng/mL Sodium 140 (137-145) mmol/L Potassium 3.9 (3.5-5.1) mmol/L Chloride 100 (98-107) mmol/L Carbon Dioxide 18 L (22-30) mmol/L Anion Gap 25.0 H (5-15) MEQ/L BUN 14 (9-20) mg/dL Creatinine 1.08 (0.66-1.25) mg/dL Estimated GFR > 60.0 ML/MIN Glucose 154 H (74-106) mg/dL Calcium 10.0 (8.4-10.2) mg/dL Magnesium 2.2 (1.6-2.3) mg/dL Total Bilirubin 1.10 (0.2-1.3) mg/dL AST 31 (17-59) U/L ALT 29 (0-50) U/L Alkaline Phosphatase 77 (38-126) U/L Creatine Kinase 198 H (55-170) U/L Troponin I < 0.012 (0.000-0.034) ng/mL Serum Total Protein 8.3 H (6.3-8.2) g/dL Albumin 5.3 H (3.5-5.0) g/dL Urine Color (YELLOW) Urine Appearance (CLEAR) Urine pH (5-6) Ur Specific [place] (1.005-1.025) Urine Protein (Negative) Urine Ketones (NEGATIVE) Urine Blood (0-5) Bret/ul Urine Nitrite (NEGATIVE) Urine Bilirubin (NEGATIVE) Urine Urobilinogen (0-1) mg/dL Ur Leukocyte Esterase (NEGATIVE) Urine WBC (Auto) (0-5) /HPF Urine RBC (Auto) (0-2) /HPF U Hyaline Cast (Auto) (0-2) /LPF U Epithel Cells (Auto) (FEW) /HPF Urine Bacteria (Auto) (NEGATIVE) /HPF Urine Mucus (Auto) (NEGATIVE) /HPF Urine Culture Reflexed (NO) Urine Glucose (NEGATIVE) mg/dL Salicylates (2-20) mg/dL Urine Opiates Level (NEGATIVE) Ur Methadone (NEGATIVE) Acetaminophen (10-30) ug/ml Urine Barbiturates (NEGATIVE) Ur Phencyclidine (PCP) (NEGATIVE) Urine Amphetamine (NEGATIVE) U Benzodiazepine Level (NEGATIVE) Urine Cocaine (NEGATIVE) Urine Marijuana (THC) (NEGATIVE) Ethyl Alcohol < 10 (0-10) mg/dL SARS-CoV-2 (PCR) (NEGATIVE) - Progress Progress: improved Progress Note: Telemetry neuro advises a D-dimer. He also advised MRI MRV in the morning. Their concern for venous sinus thrombosis in light of the fact the patient has a recent history of Covid infection. The advise Keppra loading 1500 mg as well as 500 every 12. 02/14/21 18:[address] Lopez. We will administer a dose of Lovenox. Patient will be admitted under Dr. Lopez's service. Covid test pending. 02/14/21 19:01 02/14/21 20:56 Covid test negative Discussed with .: Raquel Will see patient in: hospital (observation) Counseled pt/family regarding: lab results, diagnosis, rad results - Departure Departure Disposition: Observation Clinical Impression: Seizure, AMS (altered mental status), High anion gap metabolic acidosis, Leukocytosis, Elevated CK Condition: Stable Critical Care Time: No
[2021-02-14 15:20] LABS: SGPT/ALT 29 U/L (0-50)
--- NOTE | 2021-02-14 15:22 | XRAY ---
Indication: Seizure. Positive Covid 19. Multiple contiguous axial images obtained through the head without contrast. Comparison: December 24, 2020. Normal appearing brain parenchyma, ventricles, and bony calvarium. Visualized paranasal sinuses and mastoid air cells are clear. Impression: Continued normal CT head without contrast exam.
[2021-02-14 17:15] LABS: Amphetamine,Urine NEGATIVE (NEGATIVE); Barbiturate,Urine NEGATIVE (NEGATIVE); Benzodiazepine,Urine NEGATIVE (NEGATIVE); Cocaine,Urine NEGATIVE (NEGATIVE); Methadone,Urine NEGATIVE (NEGATIVE); Opiate,Urine NEGATIVE (NEGATIVE); PCP,Urine NEGATIVE (NEGATIVE); THC,Urine POSITIVE (NEGATIVE)
[2021-02-14 17:28] LABS: Appearance CLOUDY (CLEAR); Bacteria RARE /HPF (NEGATIVE); Bilirubin NEGATIVE (NEGATIVE); Blood MODERATE Ery/ul (0-5); Glucose NEGATIVE (NEGATIVE); Hyaline Casts 26-50 /LPF (0-2); Ketones TRACE (NEGATIVE); Leukocyte Esterase NEGATIVE (NEGATIVE); Mucus SLIGHT /HPF (NEGATIVE); Nitrite NEGATIVE (NEGATIVE); Protein,Urine Dip 100 (Negative); RBC 0-2 /HPF (0-2); Specific Gravity 1.021 (1.005-1.025); Urobilinogen NEGATIVE mg/dL (0-1)
[2021-02-14] MEDS ORDERED: Keppra 500 MG/5 ML*** 1,500 MG in D5w 100ML Mini Bag 100 ML 100 ML IV ONE (18:50)
[2021-02-14] MEDS ORDERED: ENOXAPARIN SODIUM SQ ONE ×2 (19:01→20:24)
[2021-02-14] MEDS ORDERED: Keppra 500 MG/5 ML ONE (20:09)
[2021-02-14] MEDS ORDERED: D5w 100ML Mini Bag 100 ML 100 ML IV ONE (20:09)
[2021-02-14] MEDS ORDERED: MORPHINE SULFATE 2 MG INJ IV PRN (20:58)
[2021-02-14] MEDS ORDERED: Zofran 4 MG/2 ML VIAL IV PRN (20:58)
[2021-02-14] MEDS ORDERED: Sodium Chloride 0.9% 1000 ML 1,000 ML IV SCH (21:00)
[2021-02-15 06:52] LABS: Absolute Neutrophil Ct (ANC) 5.84 (1.4-6.9); BASOPHIL % 0.2 % (0.0-0.4); Basophil (Absolute #) 0.02 (0-0.4); Eosinophil % 0.4 % (0.00-5.0); Eosinophil (Absolute #) 0.03 (0-0.5); Hematocrit 43.8 % (42-50); Hemoglobin 14.8 gm/dl (12.5-18.0); Lymphocyte (Absolute #) 1.53 (1.0-4.6); Lymphocytes % 19.1 % (24.0-44.0); Mean Cell Volume 85.9 fl (78-100); Mean Corpuscular Hgb Concent. 33.8 g/dl (32-36); Mean Platelet Volume 9.2 fl (7.5-11.0); Monocyte (Absolute #) 0.61 (0.0-1.3); Monocytes % 7.6 % (0.0-12.0); Neutrophil % 72.7 % (36.0-66.0); Platelet Count 204 K/mm3 (150-450)
[2021-02-15 06:55] LABS: ALBUMIN 4.2 g/dL (3.5-5.0); ALKALINE PHOSPHATASE 62 U/L (38-126); ANION GAP 15.3 MEQ/L (5-15); BLOOD UREA NITROGEN 12 mg/dL (9-20); CHLORIDE 105 mmol/L (98-107); Calcium 8.8 mg/dL (8.4-10.2); Carbon Dioxide 21 mmol/L (22-30); Creatinine 1 0.95 mg/dL (0.66-1.25); EST GLOMERULAR FILTRATION RATE > 60.0 ML/MIN; Glucose 84 mg/dL (74-106); Potassium 3.8 mmol/L (3.5-5.1); SGOT/AST 28 U/L (17-59); SGPT/ALT 16 U/L (0-50); SODIUM 137 mmol/L (137-145); Total Protein 6.7 g/dL (6.3-8.2)
[2021-02-15] MEDS: Sodium Chloride 0.9% 1000 ML 1,000 ML IV SCH (08:08)
--- NOTE | 2021-02-15 09:16 | PCM.HP ---
History of Present Illness - Chief Complaint Chief Complaint: Seizures, leukocytosis, anion gap acidosis, rue out venous sinus thrombosis History of Present Illness: is a 20 year old male who came to the ER yesterday with recurrent generalized seizures, these have been witnessed and he's had 5 according to the patient and his girlfriend. They are both sleeping and return to sleep multiple times during my interview this morning, Race is very frustrated with not being able to get enough sleep in the hospital and does not appear willing to answer questions, he has reportedly had an eeg and when asked where he initially said somewhere in [place], finally he thinks it was [facility]. patient is belligerent and uncooperative during my history and wants to go home and get some sleep. - Review of Systems Constitutional: No Symptoms Respiratory: No Cough, No Short Of Breath Cardiac: No Chest Pain, No Edema, No Syncope Abdominal/Gastrointestinal: No Abdominal Pain, No Nausea, No Vomiting, No Diarrhea Genitourinary Symptoms: No Dysuria Neurological: Seizure, No Focal Weakness, No Headache, No Paralysis, No Sensory Changes, No Speech Changes Psychological: No Alcohol Abuse, No Drug Abuse All Other Systems: Reviewed and Negative Medications & Allergies Home Medications: Home Medication List No Reportable Medications [No Reported Medications] 10/02/17 [History Confirmed 02/14/21] Allergies/Adverse Reactions: Allergies Allergy/AdvReac Type Severity Reaction Status Date / Time No Known Drug Allergies Allergy Verified 12/24/20 06:29 - Past Medical History Past Medical History: No Neurological History: Seizures ENT History: No Pertinent History Cardiac History: No Pertinent History Respiratory History: No Pertinent History Endocrine Medical History: No Pertinent History GI Medical History: No Pertinent History History: No Pertinent History Pyscho-Social History: No Pertinent History - Past Surgical History Past Surgical History: Yes Other Surgical History: TONSILS - Social History Smoking Status: Never smoker How long have you smoked: 2 years Exposure to second hand smoke: No Alcohol: None Drug Use: other Significant Family History: no pertinent family hx - Physical Exam Vital Signs: Vital Signs - 24 hr Temp Pulse Resp BP Pulse Ox 02/15/21 07:50 97.5 F 72 16 127/76 98 02/15/21 04:00 99.1 F 79 16 96/53 97 02/15/21 00:00 98.2 F 87 18 120/59 97 02/14/21 21:05 97.5 F 93 H 18 117/59 97 02/14/21 20:56 98 02/14/21 19:00 82 22 131/69 99 02/14/21 18:09 99.7 F 90 18 119/98 95 02/14/21 16:30 97.8 F 74 20 108/52 95 02/14/21 14:48 98 02/14/21 14:16 97.8 F 119 H 22 129/69 95 General Appearance: no apparent distress Neurologic Exam: alert, oriented x 3, other (moves all extremitieis equally, Cranial nerves are grossly intact, he is nontoxic appearing), No cooperative Respiratory Exam: normal breath sounds, lungs clear, No respiratory distress Cardiovascular Exam: regular rate/rhythm, normal heart sounds, normal peripheral pulses Gastrointestinal/Abdomen Exam: soft, normal bowel sounds, No tenderness, No mass Extremity Exam: normal inspection, normal range of motion, pelvis stable Skin Exam: normal color, warm, dry, No rash Results - Labs Lab/Micro Results: Lab Results-Last 24 Hours 02/14/21 02/14/21 02/14/21 Range/Units 14:54 14:54 14:54 WBC 20.9 H (4.0-10.5) K/mm3 RBC 5.73 H (4.1-5.6) M/mm3 Hgb 16.4 (12.5-18.0) gm/dl Hct 48.1 (42-50) % MCV 83.9 (78-100) fl MCH 28.6 (26-32) pg MCHC 34.1 (32-36) g/dl RDW 12.9 (11.5-14.0) % Plt Count 265 (150-450) K/mm3 MPV 9.1 (7.5-11.0) fl Gran % 88.7 H (36.0-66.0) % Eos # (Auto) 0.01 (0-0.5) Absolute Lymphs (auto) 1.02 (1.0-4.6) Absolute Monos (auto) 1.32 H (0.0-1.3) Lymphocytes % 4.9 L (24.0-44.0) % Monocytes % 6.3 (0.0-12.0) % Eosinophils % 0.0 (0.00-5.0) % Basophils % 0.1 (0.0-0.4) % Absolute Granulocytes 18.48 H (1.4-6.9) Basophils # 0.02 (0-0.4) D-Dimer (215-500) ng/mL Sodium 140 (137-145) mmol/L Potassium 3.9 (3.5-5.1) mmol/L Chloride 100 (98-107) mmol/L Carbon Dioxide 18 L (22-30) mmol/L Anion Gap 25.0 H (5-15) MEQ/L BUN 14 (9-20) mg/dL Creatinine 1.08 (0.66-1.25) mg/dL Estimated GFR > 60.0 ML/MIN Glucose 154 H (74-106) mg/dL Calcium 10.0 (8.4-10.2) mg/dL Magnesium 2.2 (1.6-2.3) mg/dL Total Bilirubin 1.10 (0.2-1.3) mg/dL AST 31 (17-59) U/L ALT 29 (0-50) U/L Alkaline Phosphatase 77 (38-126) U/L Creatine Kinase 198 H (55-170) U/L Troponin I < 0.012 (0.000-0.034) ng/mL Serum Total Protein 8.3 H (6.3-8.2) g/dL Albumin 5.3 H (3.5-5.0) g/dL Urine Color (YELLOW) Urine Appearance (CLEAR) Urine pH (5-6) Ur Specific [place] (1.005-1.025) Urine Protein (Negative) Urine Ketones (NEGATIVE) Urine Blood (0-5) Bret/ul Urine Nitrite (NEGATIVE) Urine Bilirubin (NEGATIVE) Urine Urobilinogen (0-1) mg/dL Ur Leukocyte Esterase (NEGATIVE) Urine WBC (Auto) (0-5) /HPF Urine RBC (Auto) (0-2) /HPF U Hyaline Cast (Auto) (0-2) /LPF U Epithel Cells (Auto) (FEW) /HPF Urine Bacteria (Auto) (NEGATIVE) /HPF Urine Mucus (Auto) (NEGATIVE) /HPF Urine Culture Reflexed (NO) Urine Glucose (NEGATIVE) mg/dL Salicylates (2-20) mg/dL Urine Opiates Level (NEGATIVE) Ur Methadone (NEGATIVE) Acetaminophen (10-30) ug/ml Urine Barbiturates (NEGATIVE) Ur Phencyclidine (PCP) (NEGATIVE) Urine Amphetamine (NEGATIVE) U Benzodiazepine Level (NEGATIVE) Urine Cocaine (NEGATIVE) Urine Marijuana (THC) (NEGATIVE) Ethyl Alcohol < 10 (0-10) mg/dL SARS-CoV-2 (PCR) (NEGATIVE) 02/14/21 02/14/21 02/14/21 Range/Units 14:54 16:30 16:30 WBC (4.0-10.5) K/mm3 RBC (4.1-5.6) M/mm3 Hgb (12.5-18.0) gm/dl Hct (42-50) % MCV (78-100) fl MCH (26-32) pg MCHC (32-36) g/dl RDW (11.5-14.0) % Plt Count (150-450) K/mm3 MPV (7.5-11.0) fl Gran % (36.0-66.0) % Eos # (Auto) (0-0.5) Absolute Lymphs (auto) (1.0-4.6) Absolute Monos (auto) (0.0-1.3) Lymphocytes % (24.0-44.0) % Monocytes % (0.0-12.0) % Eosinophils % (0.00-5.0) % Basophils % (0.0-0.4) % Absolute Granulocytes (1.4-6.9) Basophils # (0-0.4) D-Dimer (215-500) ng/mL Sodium (137-145) mmol/L Potassium (3.5-5.1) mmol/L Chloride (98-107) mmol/L Carbon Dioxide (22-30) mmol/L Anion Gap (5-15) MEQ/L BUN (9-20) mg/dL Creatinine (0.66-1.25) mg/dL Estimated GFR ML/MIN Glucose (74-106) mg/dL Calcium (8.4-10.2) mg/dL Magnesium (1.6-2.3) mg/dL Total Bilirubin (0.2-1.3) mg/dL AST (17-59) U/L ALT (0-50) U/L Alkaline Phosphatase (38-126) U/L Creatine Kinase (55-170) U/L Troponin I (0.000-0.034) ng/mL Serum Total Protein (6.3-8.2) g/dL Albumin (3.5-5.0) g/dL Urine Color YELLOW (YELLOW) Urine Appearance CLOUDY (CLEAR) Urine pH 5.0 (5-6) Ur Specific [place] 1.021 (1.005-1.025) Urine Protein 100 (Negative) Urine Ketones TRACE (NEGATIVE) Urine Blood MODERATE (0-5) Bret/ul Urine Nitrite NEGATIVE (NEGATIVE) Urine Bilirubin NEGATIVE (NEGATIVE) Urine Urobilinogen NEGATIVE (0-1) mg/dL Ur Leukocyte Esterase NEGATIVE (NEGATIVE) Urine WBC (Auto) 3-5 (0-5) /HPF Urine RBC (Auto) 0-2 (0-2) /HPF U Hyaline Cast (Auto) 26-50 (0-2) /LPF U Epithel Cells (Auto) NONE (FEW) /HPF Urine Bacteria (Auto) RARE (NEGATIVE) /HPF Urine Mucus (Auto) SLIGHT (NEGATIVE) /HPF Urine Culture Reflexed YES (NO) Urine Glucose NEGATIVE (NEGATIVE) mg/dL Salicylates < 1.0 L (2-20) mg/dL Urine Opiates Level NEGATIVE (NEGATIVE) Ur Methadone NEGATIVE (NEGATIVE) Acetaminophen < 10 L (10-30) ug/ml Urine Barbiturates NEGATIVE (NEGATIVE) Ur Phencyclidine (PCP) NEGATIVE (NEGATIVE) Urine Amphetamine NEGATIVE (NEGATIVE) U Benzodiazepine Level NEGATIVE (NEGATIVE) Urine Cocaine NEGATIVE (NEGATIVE) Urine Marijuana (THC) POSITIVE (NEGATIVE) Ethyl Alcohol (0-10) mg/dL SARS-CoV-2 (PCR) (NEGATIVE) 02/14/21 02/14/21 02/14/21 Range/Units 18:44 18:55 19:20 WBC (4.0-10.5) K/mm3 RBC (4.1-5.6) M/mm3 Hgb (12.5-18.0) gm/dl Hct (42-50) % MCV (78-100) fl MCH (26-32) pg MCHC (32-36) g/dl RDW (11.5-14.0) % Plt Count (150-450) K/mm3 MPV (7.5-11.0) fl Gran % (36.0-66.0) % Eos # (Auto) (0-0.5) Absolute Lymphs (auto) (1.0-4.6) Absolute Monos (auto) (0.0-1.3) Lymphocytes % (24.0-44.0) % Monocytes % (0.0-12.0) % Eosinophils % (0.00-5.0) % Basophils % (0.0-0.4) % Absolute Granulocytes (1.4-6.9) Basophils # (0-0.4) D-Dimer 287 (215-500) ng/mL Sodium (137-145) mmol/L Potassium (3.5-5.1) mmol/L Chloride (98-107) mmol/L Carbon Dioxide (22-30) mmol/L Anion Gap (5-15) MEQ/L BUN (9-20) mg/dL Creatinine (0.66-1.25) mg/dL Estimated GFR ML/MIN Glucose (74-106) mg/dL Calcium (8.4-10.2) mg/dL Magnesium (1.6-2.3) mg/dL Total Bilirubin (0.2-1.3) mg/dL AST (17-59) U/L ALT (0-50) U/L Alkaline Phosphatase (38-126) U/L Creatine Kinase (55-170) U/L Troponin I < 0.012 (0.000-0.034) ng/mL Serum Total Protein (6.3-8.2) g/dL Albumin (3.5-5.0) g/dL Urine Color (YELLOW) Urine Appearance (CLEAR) Urine pH (5-6) Ur Specific [place] (1.005-1.025) Urine Protein (Negative) Urine Ketones (NEGATIVE) Urine Blood (0-5) Bret/ul Urine Nitrite (NEGATIVE) Urine Bilirubin (NEGATIVE) Urine Urobilinogen (0-1) mg/dL Ur Leukocyte Esterase (NEGATIVE) Urine WBC (Auto) (0-5) /HPF Urine RBC (Auto) (0-2) /HPF U Hyaline Cast (Auto) (0-2) /LPF U Epithel Cells (Auto) (FEW) /HPF Urine Bacteria (Auto) (NEGATIVE) /HPF Urine Mucus (Auto) (NEGATIVE) /HPF Urine Culture Reflexed (NO) Urine Glucose (NEGATIVE) mg/dL Salicylates (2-20) mg/dL Urine Opiates Level (NEGATIVE) Ur Methadone (NEGATIVE) Acetaminophen (10-30) ug/ml Urine Barbiturates (NEGATIVE) Ur Phencyclidine (PCP) (NEGATIVE) Urine Amphetamine (NEGATIVE) U Benzodiazepine Level (NEGATIVE) Urine Cocaine (NEGATIVE) Urine Marijuana (THC) (NEGATIVE) Ethyl Alcohol (0-10) mg/dL SARS-CoV-2 (PCR) NEGATIVE (NEGATIVE) 02/15/21 02/15/21 Range/Units 06:30 06:30 WBC 8.0 (4.0-10.5) K/mm3 RBC 5.10 (4.1-5.6) M/mm3 Hgb 14.8 (12.5-18.0) gm/dl Hct 43.8 (42-50) % MCV 85.9 (78-100) fl MCH 29.0 (26-32) pg MCHC 33.8 (32-36) g/dl RDW 13.0 (11.5-14.0) % Plt Count 204 (150-450) K/mm3 MPV 9.2 (7.5-11.0) fl Gran % 72.7 H (36.0-66.0) % Eos # (Auto) 0.03 (0-0.5) Absolute Lymphs (auto) 1.53 (1.0-4.6) Absolute Monos (auto) 0.61 (0.0-1.3) Lymphocytes % 19.1 L (24.0-44.0) % Monocytes % 7.6 (0.0-12.0) % Eosinophils % 0.4 (0.00-5.0) % Basophils % 0.2 (0.0-0.4) % Absolute Granulocytes 5.84 (1.4-6.9) Basophils # 0.02 (0-0.4) D-Dimer (215-500) ng/mL Sodium 137 (137-145) mmol/L Potassium 3.8 (3.5-5.1) mmol/L Chloride 105 (98-107) mmol/L Carbon Dioxide 21 L (22-30) mmol/L Anion Gap 15.3 H (5-15) MEQ/L BUN 12 (9-20) mg/dL Creatinine 0.95 (0.66-1.25) mg/dL Estimated GFR > 60.0 ML/MIN Glucose 84 (74-106) mg/dL Calcium 8.8 (8.4-10.2) mg/dL Magnesium (1.6-2.3) mg/dL Total Bilirubin 1.20 (0.2-1.3) mg/dL AST 28 (17-59) U/L ALT 16 (0-50) U/L Alkaline Phosphatase 62 (38-126) U/L Creatine Kinase (55-170) U/L Troponin I (0.000-0.034) ng/mL Serum Total Protein 6.7 (6.3-8.2) g/dL Albumin 4.2 (3.5-5.0) g/dL Urine Color (YELLOW) Urine Appearance (CLEAR) Urine pH (5-6) Ur Specific [place] (1.005-1.025) Urine Protein (Negative) Urine Ketones (NEGATIVE) Urine Blood (0-5) Bret/ul Urine Nitrite (NEGATIVE) Urine Bilirubin (NEGATIVE) Urine Urobilinogen (0-1) mg/dL Ur Leukocyte Esterase (NEGATIVE) Urine WBC (Auto) (0-5) /HPF Urine RBC (Auto) (0-2) /HPF U Hyaline Cast (Auto) (0-2) /LPF U Epithel Cells (Auto) (FEW) /HPF Urine Bacteria (Auto) (NEGATIVE) /HPF Urine Mucus (Auto) (NEGATIVE) /HPF Urine Culture Reflexed (NO) Urine Glucose (NEGATIVE) mg/dL Salicylates (2-20) mg/dL Urine Opiates Level (NEGATIVE) Ur Methadone (NEGATIVE) Acetaminophen (10-30) ug/ml Urine Barbiturates (NEGATIVE) Ur Phencyclidine (PCP) (NEGATIVE) Urine Amphetamine (NEGATIVE) U Benzodiazepine Level (NEGATIVE) Urine Cocaine (NEGATIVE) Urine Marijuana (THC) (NEGATIVE) Ethyl Alcohol (0-10) mg/dL SARS-CoV-2 (PCR) (NEGATIVE) - Radiology Impressions Radiology Exams & Impressions: Radiology Procedures Category Date Time Status HEAD WITHOUT CONTRAST [CT] Stat Exams 02/14/21 14:27 Completed MRI BRAIN W & W/O CONTRAST [MRI] Routine Exams 02/15/21 08:57 Ordered Assessment/Plan (1) Seizures Current Visit: No Status: Acute Assessment & Plan: eeg records requested from [facility], will pursue MRI/MRV head per neuro recommendation to r/o thrombus. if negative home on keppra with neuro consult as outpatient. advised no driving or heights until released by neurology and patient voiced understanding of these instructions. Code(s): R56.9 - UNSPECIFIED CONVULSIONS
[2021-02-15] MEDS ORDERED: KEPPRA 500 MG PO SCH (10:00)
[2021-02-15 14:12] VITALS: BP 110/62; PULSE 74; O2SAT 99
--- NOTE | 2021-02-15 14:36 | XRAY ---
Indication: Seizures. Cortical vein thrombosis. Conventional MRV brain performed. Comparison: None Visualized superior/inferior sagittal, straight, transverse, and sigmoid sinuses are normal in course and caliber without filling defect/venous thrombosis. Impression: Negative MRV brain.
--- NOTE | 2021-02-15 15:00 | XRAY ---
Indication: Seizure. Sagittal, coronal, and axial MRI brain performed without contrast using T1, T2, FLAIR, diffusion, and ADC sequences. Comparison: None Ventriculosulcal pattern appears symmetric. No acute intracranial hemorrhage, abnormal extra-axial fluid collection, or mass effect. Diffusion images are negative for restricted signal. Fourth ventricle midline without hydrocephalus. Negative for mesial temporal sclerosis. 7/8 cranial nerve complex bilaterally symmetric. Normal flow void signal within the major intracerebral circulation. Normal appearing craniocervical junction and sella turcica. Visualized paranasal sinuses are clear. Impression: Negative MRI brain without contrast exam.
--- NOTE | 2021-02-15 15:07 | PCM.DCORD ---
- Discharge Disposition: Home, Self-Care Condition: Stable Prescriptions: New Levetiracetam [Keppra 500 mg ] 500 mg PO BID #60 tablet Levetiracetam [Keppra 500 mg ] 1 tab PO BID #60 tablet Additional Instructions: do not drive or operate machinery, stay away from heights until seen by neurology Follow up with: ERROL MARINELLI MD [ACTIVE STAFF] - 1 Week VY WHEELER [CONSULTING PHYSICIAN] -
== END 2021-02-15 15:57 | disposition home or self-care (01) ==
LOC: ED 14:15 → MED SURG 20:35
PROVIDERS: ADMIT Family Medicine; ATTEND Family Medicine
DX: R56.9 Unspecified convulsions (principal); R51.9 Headache, unspecified; D72.829 Elevated white blood cell count, unspecified; E87.2 Acidosis; Z20.822 Contact with and (suspected) exposure to COVID-19
CPT/HCPCS: 36000; 36415; 70450; 70544; 70551; 80053; 80307; 81001; 82550; 83735; 84484; 85025; 85379; 87086; 93005; 93041; 93268; 94760; 96372; 96374; 96375; 99285; G0378; U0003; J1650; J1953; J2060; J2405; A9270-GY; G0480

== ENCOUNTER 2021-04-24 18:49 | Emergency (ER) | payer BC, OTHER ==
[2021-04-24] MEDS ORDERED: VERSED 5 MG/5 ML ONE (18:51)
[2021-04-24] MEDS ORDERED: Keppra 500 MG/5 ML*** 2,000 MG in D5w 100ML Mini Bag 100 ML 100 ML IV ONE (19:02)
[2021-04-24] MEDS ORDERED: Ativan 2 MG/1 ML VIAL IV ONE (19:02)
[2021-04-24] MEDS ORDERED: Ativan 2 MG/1 ML VIAL ONE (19:08)
--- NOTE | 2021-04-24 19:12 | ERPHSYRPT ---
- History of Present Illness Time Seen by Provider: 04/24/21 19:08 Source: patient, EMS Exam Limitations: other (Actively seizing) Physician History: The patient is a 20-year-old male with a past medical significant for seizures presents with a chief complaint of a seizure. Evidently he lives with his girlfriend who came home to find him actively having a seizure. EMS was called immediately and when EMS arrived the patient was still actively seizing and when he stopped he was postictal and combative. He never regained full consciousness and I physically was walking in the emergency department to start my shift when I was called to the room and patient was actively having another seizure. The seizure lasted less than a minute and when he came to release resolved he was postictal. He was combative. He was given 5 mg of IM midazolam immediately which stopped the seizure and this was followed by 2 mg of Ativan once IV access was established stop the seizure. His glucose was noted to be 176 upon being checked by the nurse while the patient was actively seizing. The patient was noted to have a postictal period and then gradually regained consciousness and was back to his baseline mental status. Was then able to obtain details pertaining to the HPI. He evidently has been recently diagnosed seizures reportedly 6 months ago and is on Keppra and reported his been compliant with this medication. He reportedly takes 500 mg twice a day. There is also report of marijuana use, but the patient denies this. The patient stated that he has follow-up with a neurologist on April 26, 2021 to establish care. This part of the history was obtained after the patient was ANO x3 and back to baseline after his postictal phase had resolved. Allergies/Adverse Reactions: No Known Drug Allergies Allergy (Verified 12/24/20 06:29) Hx Tetanus, Diphtheria Vaccination/Date Given: Yes Hx Influenza Vaccination/Date Given: No Hx Pneumococcal Vaccination/Date Given: No Travel Risk - Vaccine Status Have you recieved a Covid-19 vaccination: Yes Respiratory Coordinator: Alaris Royalty - Vaccination Dates Date of 2cond Vaccination (if applicable): due for next dose Comment: pt is due for next dose - Review of Systems Neurological: Seizure All Other Systems: Unable due to condition - Past Medical History Pertinent Past Medical History: No Neurological History: Seizures ENT History: No Pertinent History Cardiac History: No Pertinent History Respiratory History: No Pertinent History Endocrine Medical History: No Pertinent History GI Medical History: No Pertinent History History: No Pertinent History Psycho-Social History: No Pertinent History - Past Surgical History Past Surgical History: Yes Other Surgical History: TONSILS - Social History Smoking Status: Never smoker How long have you smoked: 2 years Exposure to second hand smoke: No Alcohol Use: None Drug Use: other Patient Lives Alone: No Significant Family History: no pertinent family hx - Nursing Vital Signs Nursing Vital Signs: Initial Vital Signs Temperature 97.6 F 04/24/21 19:02 Pulse Rate 88 04/24/21 19:02 Respiratory Rate 19 04/24/21 19:02 Blood Pressure 140/74 04/24/21 19:02 O2 Sat by Pulse Oximetry 98 04/24/21 19:02 Pain Scale Pain Intensity 0 - Physical Exam General Appearance: other (Actively seizure when I entered the room. ) Eye Exam: PERRL/EOMI, No EOM palsy/anisocoria Ears, Nose, Throat Exam: TMs normal, other (No evidence of tongue trauma.), No pharyngeal erythema, No tonsillar exudate Neck Exam: No JVD, No midline tenderness Respiratory Exam: normal breath sounds, lungs clear, No chest tenderness, No respiratory distress Cardiovascular Exam: regular rate/rhythm, normal heart sounds, capillary refill <2 sec, No murmur, No friction rub, No gallop Gastrointestinal/Abdomen Exam: soft, No tenderness, No distention, No mass Rectal Exam: deferred Back Exam: normal inspection Extremity Exam: normal inspection Neurologic Exam: alert, oriented x 3, cooperative, 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 ), No motor deficits, No sensory deficit, No motor weakness, No facial droop, No slurred speech Skin Exam: normal color, warm, dry, other (The patient had appeared to have a contusion to the right side of his forehead where he evidently had fallen or impacted his head during a seizure.), No rash, No petechiae, No jaundice SpO2 Interpretation: normal O2 Delivery: Room Air - Course EKG Interpreted by Me: Sinus Rhythm, Sinus Tach, NORMAL AXIS, NORMAL INTERVALS, NORMAL ST-T (No evidence of acute myocardial ischemia or injury pattern) - CT Exams Head CT Interpretation: Negative Cervical Spine CT Interpretation: Negative Ordered Tests: Active Orders 24 hr Category Date Time Status Features Reporter STAT Care 04/24/21 19:03 Completed EKG-ER Only STAT Care 04/24/21 19:02 Completed IV Insertion STAT Care 04/24/21 19:02 Completed Oxygen-ED Only NON-REBREATHER 100% Care 04/24/21 19:02 Completed Pulse Oximetry (ED) STAT Care 04/24/21 19:02 Completed CERVICAL SPINE WO CONTRAST [CT] Stat Exams 04/24/21 20:13 Taken HEAD WITHOUT CONTRAST [CT] Stat Exams 04/24/21 19:03 Taken BMP Stat Lab 04/24/21 22:05 Completed CBC W DIFF Stat Lab 04/24/21 19:11 Completed CMP Stat Lab 04/24/21 19:16 Completed CULTURE,URINE Stat Lab 04/24/21 19:22 Received Direct Bilirubin Stat Lab 04/24/21 19:16 Completed MAGNESIUM Stat Lab 04/24/21 19:16 Completed PHOSPHOROUS Stat Lab 04/24/21 19:16 Completed Sodium, Urine Stat Lab 04/24/21 19:00 Completed UA W/RFX UR CULTURE Stat Lab 04/24/21 19:22 Completed Urine Triage Profile Stat Lab 04/24/21 19:22 Completed Medication Summary Discontinued Medications Generic Name Dose Route Start Last Admin Trade Name Freq PRN Reason Stop Dose Admin Levetiracetam 2,000 mg/ 120 mls @ 400 mls/hr 04/24/21 19:02 04/24/21 19:20 Dextrose IV 04/24/21 19:19 400 mls/hr STAT ONE Administration Dextrose Confirm 04/24/21 19:21 D5w 100ml Mini Bag 100 Ml Administered 04/24/21 19:22 Dose 100 mls @ ud IV .STK-MED ONE Levetiracetam Confirm 04/24/21 19:13 Levetiracetam 500 Mg/5 Ml Vial Administered 04/24/21 19:14 Dose 500 mg .ROUTE .STK-MED ONE Lorazepam 2 mg 04/24/21 19:02 04/24/21 19:18 Lorazepam 2 Mg/1 Ml 2 Mg Vial IV 04/24/21 19:03 2 mg STAT ONE Administration Lorazepam Confirm 04/24/21 19:08 Lorazepam 2 Mg/1 Ml 2 Mg Vial Administered 04/24/21 19:09 Dose 2 mg .ROUTE .STK-MED ONE Midazolam HCl Confirm 04/24/21 18:51 Midazolam Hcl 5 Mg/5 Ml Vial Administered 04/24/21 18:52 Dose 5 mg .ROUTE .STK-MED ONE Midazolam HCl 5 mg 04/24/21 22:20 04/24/21 19:02 Midazolam Hcl 5 Mg/5 Ml Vial IM 04/24/21 22:21 5 mg STAT ONE Administration Ondansetron HCl Confirm 04/24/21 19:26 Ondansetron Hcl 4 Mg/2 Ml Vial Administered 04/24/21 19:27 Dose 8 mg .ROUTE .STK-MED ONE Ondansetron HCl 8 mg 04/24/21 19:52 04/24/21 19:53 Ondansetron Hcl 4 Mg/2 Ml Vial IV 04/24/21 19:53 8 mg STAT ONE Administration Lab/Rad Data: Laboratory Result Diagrams 04/24/21 19:11 04/24/21 22:05 Laboratory Results 04/24/21 04/24/21 04/24/21 Range/Units 22:05 19:22 19:22 WBC (4.0-10.5) K/mm3 RBC (4.1-5.6) M/mm3 Hgb (12.5-18.0) gm/dl Hct (42-50) % MCV (78-100) fl MCH (26-32) pg MCHC (32-36) g/dl RDW (11.5-14.0) % Plt Count (150-450) K/mm3 MPV (7.5-11.0) fl Gran % (36.0-66.0) % Eos # (Auto) (0-0.5) Absolute Lymphs (auto) (1.0-4.6) Absolute Monos (auto) (0.0-1.3) Lymphocytes % (24.0-44.0) % Monocytes % (0.0-12.0) % Eosinophils % (0.00-5.0) % Basophils % (0.0-0.4) % Absolute Granulocytes (1.4-6.9) Basophils # (0-0.4) Sodium 139 D (137-145) mmol/L Potassium 4.0 D (3.5-5.1) mmol/L Chloride 103 (98-107) mmol/L Carbon Dioxide 22 (22-30) mmol/L Anion Gap 17.9 H (5-15) MEQ/L BUN 17 (9-20) mg/dL Creatinine 1.23 (0.66-1.25) mg/dL Estimated GFR > 60.0 ML/MIN Glucose 110 H (74-106) mg/dL Calcium 9.4 (8.4-10.2) mg/dL Phosphorus (2.5-4.5) mg/dL Magnesium (1.6-2.3) mg/dL Total Bilirubin (0.2-1.3) mg/dL Direct Bilirubin (0.0-0.4) mg/dL AST (17-59) U/L ALT (0-50) U/L Alkaline Phosphatase (38-126) U/L Serum Total Protein (6.3-8.2) g/dL Albumin (3.5-5.0) g/dL Urine Color YELLOW (YELLOW) Urine Appearance SLIGHTLY CLOUDY (CLEAR) Urine pH 5.0 (5-6) Ur Specific [place] 1.016 (1.005-1.025) Urine Protein >=500 (Negative) Urine Ketones TRACE (NEGATIVE) Urine Blood MODERATE (0-5) Bret/ul Urine Nitrite NEGATIVE (NEGATIVE) Urine Bilirubin NEGATIVE (NEGATIVE) Urine Urobilinogen NEGATIVE (0-1) mg/dL Ur Leukocyte Esterase NEGATIVE (NEGATIVE) Urine WBC (Auto) 6-10 (0-5) /HPF Urine RBC (Auto) NONE (0-2) /HPF U Hyaline Cast (Auto) 6-10 (0-2) /LPF U Epithel Cells (Auto) NONE (FEW) /HPF Urine Bacteria (Auto) NONE (NEGATIVE) /HPF Urine Mucus (Auto) SLIGHT (NEGATIVE) /HPF Urine Culture Reflexed ORDERED SEPARATELY (NO) Urine Sodium (30-90) mmol/L Urine Glucose NEGATIVE (NEGATIVE) mg/dL Urine Opiates Level NEGATIVE (NEGATIVE) Ur Methadone NEGATIVE (NEGATIVE) Urine Barbiturates NEGATIVE (NEGATIVE) Ur Phencyclidine (PCP) NEGATIVE (NEGATIVE) Urine Amphetamine NEGATIVE (NEGATIVE) U Benzodiazepine Level NEGATIVE (NEGATIVE) Urine Cocaine NEGATIVE (NEGATIVE) Urine Marijuana (THC) POSITIVE (NEGATIVE) 04/24/21 04/24/21 04/24/21 Range/Units 19:16 19:11 19:00 WBC 18.5 H (4.0-10.5) K/mm3 RBC 6.51 H (4.1-5.6) M/mm3 Hgb 18.6 H (12.5-18.0) gm/dl Hct 56.7 H (42-50) % MCV 87.1 (78-100) fl MCH 28.6 (26-32) pg MCHC 32.8 (32-36) g/dl RDW 13.0 (11.5-14.0) % Plt Count 350 (150-450) K/mm3 MPV 9.7 (7.5-11.0) fl Gran % 84.0 H (36.0-66.0) % Eos # (Auto) 0.01 (0-0.5) Absolute Lymphs (auto) 2.25 (1.0-4.6) Absolute Monos (auto) 0.65 (0.0-1.3) Lymphocytes % 12.2 L (24.0-44.0) % Monocytes % 3.5 (0.0-12.0) % Eosinophils % 0.1 (0.00-5.0) % Basophils % 0.2 (0.0-0.4) % Absolute Granulocytes 15.55 H (1.4-6.9) Basophils # 0.03 (0-0.4) Sodium 151 H* (137-145) mmol/L Potassium 5.2 H (3.5-5.1) mmol/L Chloride 103 (98-107) mmol/L Carbon Dioxide 11 L* (22-30) mmol/L Anion Gap 40.7 H (5-15) MEQ/L BUN 13 (9-20) mg/dL Creatinine 1.65 H (0.66-1.25) mg/dL Estimated GFR 56.3 ML/MIN Glucose 175 H (74-106) mg/dL Calcium 11.0 H (8.4-10.2) mg/dL Phosphorus 6.1 H (2.5-4.5) mg/dL Magnesium 2.8 H (1.6-2.3) mg/dL Total Bilirubin 1.30 (0.2-1.3) mg/dL Direct Bilirubin 0.3 (0.0-0.4) mg/dL AST 26 (17-59) U/L ALT 19 (0-50) U/L Alkaline Phosphatase 83 (38-126) U/L Serum Total Protein 9.7 H (6.3-8.2) g/dL Albumin > 6.0 H (3.5-5.0) g/dL Urine Color (YELLOW) Urine Appearance (CLEAR) Urine pH (5-6) Ur Specific [place] (1.005-1.025) Urine Protein (Negative) Urine Ketones (NEGATIVE) Urine Blood (0-5) Bret/ul Urine Nitrite (NEGATIVE) Urine Bilirubin (NEGATIVE) Urine Urobilinogen (0-1) mg/dL Ur Leukocyte Esterase (NEGATIVE) Urine WBC (Auto) (0-5) /HPF Urine RBC (Auto) (0-2) /HPF U Hyaline Cast (Auto) (0-2) /LPF U Epithel Cells (Auto) (FEW) /HPF Urine Bacteria (Auto) (NEGATIVE) /HPF Urine Mucus (Auto) (NEGATIVE) /HPF Urine Culture Reflexed (NO) Urine Sodium 168 H (30-90) mmol/L Urine Glucose (NEGATIVE) mg/dL Urine Opiates Level (NEGATIVE) Ur Methadone (NEGATIVE) Urine Barbiturates (NEGATIVE) Ur Phencyclidine (PCP) (NEGATIVE) Urine Amphetamine (NEGATIVE) U Benzodiazepine Level (NEGATIVE) Urine Cocaine (NEGATIVE) Urine Marijuana (THC) (NEGATIVE) - Progress Progress: improved Progress Note: 04/24/21 19:46 The patient is now waking up and able to tell me his name. He can give me a thumbs up and obey commands. 04/24/21 20:11 The patient's labs, specifically his serum sodium may be reflective of lab error, specifically may be iatrogenic from saline being drawn out when the BMP was drawn. I will recheck it before deciding to treat. 04/24/21 20:27 The patient is back from CT and reassessed and is awake and alert and co operative. He is taken out of restraints, specifically the soft restraints applied to his wrist. 04/24/21 20:40 I reviewed the patient's head CT and did not note any acute neurocranial pathology. Currently waiting formal radiology review. Cervical spine CTs still being uploaded however upon reviewing C1-C2 there does not appear to be any evidence of fracture or dislocation. 04/24/21 21:07 The patient's UA is positive for marijuana despite the patient denying drug use. He does have a high serum sodium and repeat BMP is pending. The patient's leukocytosis is likely a stress response from his seizure. He has no fever and has no meningismus at this time and is A&O x3. 04/24/21 22:02 The patient is up walking around the room and appears to be in no obvious distress. He is requesting something to drink. He was given something to drink, specifically water and he was requested to have the Zapata catheter removed. This request was granted. 04/24/21 22:44 The patient spoke with his mom who confirmed the patient has an appointment with neurology on the this month at 3 PM. His neurologist is Dr. Caty Godoy. The mom stated that she and her girlfriend can stay with him until the patient can follow-up with a neurologist that way the patient will not stay home alone. 04/24/21 22:51 We're currently working on paging his neurologist. 04/24/21 23:[address] Irving, neurologist, and discussed the case with her. She was okay with the patient being discharged home if back to baseline and recommended the patient increase his Keppra to 750 mg bid. She and I suspect the patient may be non-compliant with this medication. She was unable to move his appointment up and recommended he follow-up to establish care with her as scheduled on 04/26/21 at 3:00 pm. 04/25/21 05:35 The patient's repeat BMP is back and appears to have normalized confirming my suspicion that this was likely secondary to lab error or iatrogenic from his BMP being drawn through a saline lock. The patient is comfortable being discharged home and his mother is currently here to drive him home. He was given seizure precautions prior to discharge and his mother reportedly was able to stay with him as well as his girlfriend while at home until he can follow-up. The patient was instructed to refrain from smoking marijuana as this can lower his seizure threshold. He agreed with and verbally understood the discharge plan. Discussed with Dr.: Other (Dr. Irving, neurologist) Counseled pt/family regarding: drug and/or alcohol abuse, lab results, diagnosis, need for follow-up, rad results - Departure Departure Disposition: Home Clinical Impression: Seizure, Marijuana abuse Condition: Stable Critical Care Time: No Referrals: ERROL MARINELLI MD [Primary Care Provider] - Follow up/PCP as directed Instructions: Seizures, Adult (DC) Additional Instructions: Please follow-up with [place] neurologist, as scheduled on 04/26/21 at 3:00 pm. You will need to increase your Keppra dose from 500 mg morning and night to 750 mg morning and night starting tomorrow morning. Please refrain from driving, swimming or bathing alone, climbing heights, or operating heavy machinery until you are told otherwise by your neurologist. Please refrain from smoking marijuana. This can lower your seizure threshold to contribute to having seizures. Prescriptions: Levetiracetam 250 MG [Keppra 250 MG] 750 mg PO BID #180 tablet
[2021-04-24] MEDS ORDERED: Keppra 500 MG/5 ML ONE (19:13)
[2021-04-24 19:20] LABS: Absolute Neutrophil Ct (ANC) 15.55 (1.4-6.9); BASOPHIL % 0.2 % (0.0-0.4); Basophil (Absolute #) 0.03 (0-0.4); Eosinophil % 0.1 % (0.00-5.0); Eosinophil (Absolute #) 0.01 (0-0.5); Hematocrit 56.7 % (42-50); Hemoglobin 18.6 gm/dl (12.5-18.0); Lymphocyte (Absolute #) 2.25 (1.0-4.6); Lymphocytes % 12.2 % (24.0-44.0); Mean Cell Volume 87.1 fl (78-100); Mean Corpuscular Hemoglobin 28.6 pg (26-32); Mean Corpuscular Hgb Concent. 32.8 g/dl (32-36); Mean Platelet Volume 9.7 fl (7.5-11.0); Monocyte (Absolute #) 0.65 (0.0-1.3); Monocytes % 3.5 % (0.0-12.0); Platelet Count 350 K/mm3 (150-450); Red Blood Count 6.51 M/mm3 (4.1-5.6); White Blood Count 18.5 K/mm3 (4.0-10.5)
[2021-04-24] MEDS ORDERED: D5w 100ML Mini Bag 100 ML 100 ML IV ONE (19:21)
[2021-04-24 19:26] LABS: ALKALINE PHOSPHATASE 83 U/L (38-126); ANION GAP 40.7 MEQ/L (5-15); BLOOD UREA NITROGEN 13 mg/dL (9-20); CHLORIDE 103 mmol/L (98-107); Creatinine 1 1.65 mg/dL (0.66-1.25); Direct Bilirubin 0.3 mg/dL (0.0-0.4); EST GLOMERULAR FILTRATION RATE 56.3 ML/MIN; Glucose 175 mg/dL (74-106); MAGNESIUM 2.8 mg/dL (1.6-2.3); PHOSPHOROUS 6.1 mg/dL (2.5-4.5); Potassium 5.2 mmol/L (3.5-5.1); SGOT/AST 26 U/L (17-59); SGPT/ALT 19 U/L (0-50); Total Protein 9.7 g/dL (6.3-8.2)
[2021-04-24] MEDS ORDERED: Zofran 4 MG/2 ML VIAL ONE (19:26)
[2021-04-24 19:33] LABS: ALBUMIN > 6.0 g/dL (3.5-5.0); Carbon Dioxide 11 mmol/L (22-30); SODIUM 151 mmol/L (137-145)
[2021-04-24] MEDS ORDERED: Zofran 4 MG/2 ML VIAL IV ONE (19:52)
[2021-04-24 20:03] LABS: Appearance SLIGHTLY CLOUDY (CLEAR); Bilirubin NEGATIVE (NEGATIVE); Blood MODERATE Ery/ul (0-5); Glucose NEGATIVE (NEGATIVE); Ketones TRACE (NEGATIVE); Leukocyte Esterase NEGATIVE (NEGATIVE); Mucus SLIGHT /HPF (NEGATIVE); Nitrite NEGATIVE (NEGATIVE); Protein,Urine Dip >=500 (Negative); Specific Gravity 1.016 (1.005-1.025); Urobilinogen NEGATIVE mg/dL (0-1)
[2021-04-24 20:05] LABS: Amphetamine,Urine NEGATIVE (NEGATIVE); Barbiturate,Urine NEGATIVE (NEGATIVE); Benzodiazepine,Urine NEGATIVE (NEGATIVE); Cocaine,Urine NEGATIVE (NEGATIVE); Methadone,Urine NEGATIVE (NEGATIVE); Opiate,Urine NEGATIVE (NEGATIVE); PCP,Urine NEGATIVE (NEGATIVE); THC,Urine POSITIVE (NEGATIVE)
[2021-04-24] MEDS ORDERED: VERSED 5 MG/5 ML IM ONE (22:20)
[2021-04-24 22:23] LABS: ANION GAP 17.9 MEQ/L (5-15); BLOOD UREA NITROGEN 17 mg/dL (9-20); CHLORIDE 103 mmol/L (98-107); Calcium 9.4 mg/dL (8.4-10.2); Carbon Dioxide 22 mmol/L (22-30); Creatinine 1 1.23 mg/dL (0.66-1.25); EST GLOMERULAR FILTRATION RATE > 60.0 ML/MIN; Glucose 110 mg/dL (74-106)
[2021-04-24 22:24] LABS: SODIUM 139 mmol/L (137-145)
[2021-04-25 00:31] VITALS: BP 123/86; PULSE 69; O2SAT 93
--- NOTE | 2021-04-25 08:48 | XRAY ---
Indication: Seizure. Multiple contiguous axial images obtained through the head without contrast. Comparison: February 14, 2021. Images through base of brain and vertex are now degraded by motion artifact. No gross acute intracranial hemorrhage, abnormal extra-axial fluid collection, or mass effect. Fourth ventricle is midline without hydrocephalus. [place]-white matter differentiation preserved. Bony calvarium intact. Visualized paranasal sinuses and mastoid air cells are clear. Impression: Motion artifact. No gross new/acute intracranial abnormalities.
--- NOTE | 2021-04-25 08:50 | XRAY ---
Indication: Seizure. Multiple contiguous axial images obtained through the cervical spine. Sagittal and coronal reformatted images obtained. Comparison: None Axial images negative for acute fracture, suspicious bony lesions, or spinal canal stenosis. Sagittal and coronal reformatted images demonstrates normal alignment with vertebral body height/disc spaces maintained. No acute compression fracture, subluxation, or jumped facet. Normal appearing craniocervical junction. Visualized noncontrasted soft tissues including lung apices are unremarkable. Impression: Negative CT cervical spine.
== END 2021-04-25 00:40 | disposition home or self-care (01) ==
LOC: ED 18:49
DX: R56.9 Unspecified convulsions (principal); F12.10 Cannabis abuse, uncomplicated
CPT/HCPCS: 36000; 36415; 70450; 72125; 80048; 80053; 80307; 81001; 82248; 83735; 84100; 84300; 85025; 87086; 93005; 93041; 94760; 96372; 96374; 96375; 99285; J1953; J2060; J2250; J2405

== ENCOUNTER 2023-03-12 12:29 | Emergency (ER) | payer OTHER, BC ==
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
[2023-03-12 12:47] VITALS: BP 105/62; PULSE 70; TEMP 97.9; O2SAT 100
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
== END 2023-03-12 14:48 | disposition home or self-care (01) ==
LOC: ED 12:29
DX: S00.93XA Contusion of unspecified part of head, initial encounter (principal); M62.838 Other muscle spasm; V43.52XA Car driver injured in collision with other type car in traffic accident, initial encounter; R42 Dizziness and giddiness; R11.10 Vomiting, unspecified
CPT/HCPCS: 70450; 72125; 99282

== ENCOUNTER 2023-12-02 14:32 | Emergency (ER) | payer SELFPAY ==
[2023-12-02 14:38] VITALS: RESP 16; TEMP 98.3; O2SAT 99
--- NOTE | 2023-12-02 15:02 | ERPHSYRPT ---
- History of Present Illness Time Seen by Provider: 12/02/23 14:50 Source: patient, other (fiance) Exam Limitations: no limitations Patient Subjective Stated Complaint: pt here for seizure at home today, pt has hx of seizures, he states he has been taking hes meds, Triage Nursing Assessment: pt alert,and oriented, resp easy. skin w/d/p. moves all ext well, no edema noted, pt refuses iv, states he is scared of them Physician History: Pt had about a 2 minute tonic-clonic seizure [employer]; takes keppra 750mg bid for his seizure disorder. Last seizure was 1.5 years ago. Pt c/o a frontal headache; denies chest pain, shortness of air, abdominal pain, nausea, vomiting. Pt refuses labs and urine specimen but consents to a head CT scan. Allergies/Adverse Reactions: No Known Drug Allergies Allergy (Verified 12/02/23 14:36) Hx Tetanus, Diphtheria Vaccination/Date Given: Yes Hx Influenza Vaccination/Date Given: No Hx Pneumococcal Vaccination/Date Given: No Immunizations Up to Date: Yes Travel Risk - International Travel Have you traveled outside of the country in past 3 weeks: No - Emerging Infectious Disease Are you exhibiting symptoms associated with any current EIDs: No - Review of Systems Respiratory: No Dyspnea Cardiac: No Chest Pain Abdominal/Gastrointestinal: No Abdominal Pain, No Nausea, No Vomiting Musculoskeletal: No Back Pain, No Neck Pain Neurological: Headache, Seizure - Past Medical History Pertinent Past Medical History: No Neurological History: Seizures ENT History: No Pertinent History Cardiac History: No Pertinent History Respiratory History: No Pertinent History Endocrine Medical History: No Pertinent History Musculoskeletal History: No Pertinent History GI Medical History: No Pertinent History History: No Pertinent History Psycho-Social History: No Pertinent History - Past Surgical History Past Surgical History: Yes Other Surgical History: TONSILS Significant Family History: no pertinent family hx - Social History Smoking Status: Former smoker How long have you smoked: 2 years Exposure to second hand smoke: No Alcohol Use: None Drug Use: other Patient Lives Alone: No - Social Determinants of Health Will the patient participate in the screening: Declined to provide - Nursing Vital Signs Nursing Vital Signs: Initial Vital Signs Pulse Rate 74 12/02/23 14:34 Respiratory Rate 13 12/02/23 14:34 Blood Pressure 114/69 12/02/23 14:34 Pain Scale Pain Intensity 0 - [place] Coma Scale Best Eye Response ([place]): (4) open spontaneously Best Verbal Response ([place]): (5) oriented Best Motor Response ([place]): (6) obeys commands [place] Total: 15 - Physical Exam General Appearance: alert Eye Exam: bilateral eye: PERRL, EOMI Ears, Nose, Throat Exam: pharynx normal Neck Exam: normal inspection, non-tender Respiratory: normal breath sounds Cardiovascular: normal heart sounds Gastrointestinal: normal bowel sounds Back Exam: No vertebral tenderness Extremity Exam: normal range of motion, No pedal edema 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, 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[employer] Exam: normal hearing, normal speech, PERRL Motor/Sensory: no motor deficit, no sensory deficit Skin Exam: warm, dry, No cyanosis SpO2 Interpretation: normal SpO2: 99 O2 Delivery: Room Air - Course Nursing assessment & vital signs reviewed: Yes EKG Interpreted by Me: RATE (82), Sinus Rhythm, NORMAL AXIS, Other (QTc = 420) - CT Exams Head CT Interpretation: Discussed w/radiologist (Continued normal CT Head without contrawt exam.) Ordered Tests: Active Orders 24 hr Category Date Time Status EKG-ER Only STAT Care 12/02/23 15:19 Active HEAD WITHOUT CONTRAST [CT] Stat Exams 12/02/23 15:03 Completed - Progress Progress: improved Counseled pt/family regarding: diagnosis, need for follow-up, rad results Medical Desision Making - Diagnostic Testing Diagnostic test were ordered, analyzed, and reviewed by me: Yes Radiological Interpretation: Discussed w/ radiologist - Departure Departure Disposition: Home Clinical Impression: Seizure, Headache Condition: Stable Critical Care Time: No Referrals: BRYANT ROBERTS NP [Primary Care Provider] - Follow up/PCP as directed Instructions: Seizures, Adult (DC) Additional Instructions: Follow up with private doctor tomorrow. Forms: Work/School Release Form
--- NOTE | 2023-12-02 15:35 | XRAY ---
Indication: Seizure. Headache. Multiple contiguous axial images obtained through the head without contrast. Comparison: March 12, 2023. Normal appearing brain parenchyma, ventricles, and bony calvarium. Impression: Continued normal CT head without contrast exam.
[2023-12-02 15:36] VITALS: BP 109/76; PULSE 64
== END 2023-12-02 15:58 | disposition home or self-care (01) ==
LOC: ED 14:32
DX: G40.909 Epilepsy, unspecified, not intractable, without status epilepticus (principal); R51.9 Headache, unspecified; Z79.899 Other long term (current) drug therapy
CPT/HCPCS: 70450; 93005; 99283

== ENCOUNTER 2025-02-16 16:21 | Emergency (ER) | payer OTHER ==
[2025-02-16 16:50] VITALS: TEMP 98.4; O2SAT 98
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
[2025-02-16 17:43] VITALS: BP 143/74; PULSE 88; RESP 16
== END 2025-02-16 17:44 | disposition home or self-care (01) ==
LOC: ED 16:21
DX: S39.012A Strain of muscle, fascia and tendon of lower back, initial encounter (principal); X50.0XXA Overexertion from strenuous movement or load, initial encounter; Y92.512 Supermarket, store or market as the place of occurrence of the external cause; Y99.0 Civilian activity done for income or pay; Z79.52 Long term (current) use of systemic steroids; Z79.899 Other long term (current) drug therapy